=== PATIENT | female | born 1960 | race Caucasian/White ===

== ENCOUNTER 2025-01-08 18:41 | Inpatient (IN) ==
[2025-01-08 18:49] VITALS: BMI 46.5
[2025-01-08] MEDS: SODIUM CHLORIDE 1,000 ML IV ONE ×2 (18:57→21:24)
[2025-01-08] MEDS: PEPCID IVP ONE (18:58)
[2025-01-08] MEDS: REGLAN IVP STA (19:00)
[2025-01-08] MEDS: TORADOL IVP ONE (19:14)
[2025-01-08] MEDS: MAXIPIME 2 GM/50 ML D5W 2 GM/50 ML BAG IV ONE (19:14)
[2025-01-08] MEDS: TYLENOL PO STA (19:15)
[2025-01-08] MEDS: DUONEB NEB STA (19:16)
[2025-01-08 19:19] LABS: BASOPHILS % (AUTO) 0.2 % (0.0-3.0); HEMATOCRIT 36.2 % (37.0-47.0); IMMATURE GRANULOCYTE # (AUTO) 0.3 (0.0-1.0); IMMATURE GRANULOCYTE % (AUTO) 2.8 % (0.0-5.0); LYMPHOCYTES # (AUTO) 2.3 K/uL (0.60-3.4); LYMPHOCYTES % (AUTO) 18.3 (10.0-50.0); MEAN CORPUSCULAR HGB CONC 33.1 (31.8-35.4); MEAN CORPUSCULAR VOLUME 84.4 fl (81.0-99.0); MONOCYTES # (AUTO) 1.8 K/uL (0.4-2.0); MONOCYTES % (AUTO) 14.6 (0-10); NEUTROPHILS # (AUTO) 7.9 K/ul (2.0-6.9); NEUTROPHILS % (AUTO) 64.1 % (42.2-75.2); PLATELET COUNT 136 10^3/uL (140-440); RDW COEFFICIENT OF VARIATION 14.9 % (11.6-14.8); RED BLOOD COUNT 4.29 10^6/ul (4.20-5.40); WHITE BLOOD COUNT 12.34 K/ul (4.6-10.2)
[2025-01-08 19:27] LABS: ALANINE AMINOTRANSFERASE 27.7 U/L (0-35); ALBUMIN 3.84 g/dL (3.5-5.0); ALKALINE PHOSPHATASE 80.6 U/L (53-141); ASPARTATE AMINO TRANSFERASE 49.4 U/L (14-36); BILIRUBIN,TOTAL 1.42 mg/dL (0.2-1.3); CALCIUM 8.79 mg/dL (8.4-10.2); CARBON DIOXIDE 23.2 mmol/L (22-30.0); CHLORIDE 97.7 mmol/L (98-107); CREATININE 1.02 mg/dL (0.60-1.30); GLUCOSE 203.4 mg/dL (74-106); LIPASE 45.7 U/L (23-300); MAGNESIUM 1.56 mg/dL (1.6-2.3); POTASSIUM 3.28 mmol/L (3.5-5.1); SODIUM 135.6 mmol/L (134.5-145); TOTAL PROTEIN 8.2 g/dL (6.3-8.2)
[2025-01-08 19:38] LABS: TROPONIN I 0.024 ng/ml (0.0000-0.120)
[2025-01-08 19:40] LABS: MOLECULAR FLU A NEGATIVE BY NAAT (NEGATIVE); MOLECULAR FLU B NEGATIVE BY NAAT (NEGATIVE); SARS COV-2 RNA RAPID NAAT NEGATIVE (NEGATIVE)
--- NOTE | 2025-01-08 20:03 | DI ---
EXAM: CHEST RADIOGRAPH (1 VIEW) TECHNIQUE: Frontal Chest Radiograph. HISTORY: Chest pain, shortness of breath COMPARISON: None. FINDINGS: Lines, Tubes, Devices: None Lungs and Pleura: Small left pleural effusion with adjacent consolidation. Ground-glass densities in the left lung. Cardiac silhouette: Normal. Bones: No acute abnormality. IMPRESSION: Findings suggesting left lower lobe pneumonia. Clinical follow-up with follow up imaging to ensure resolution and exclude other etiologies.
--- NOTE | 2025-01-08 20:22 | ED.PDOC ---
General ED Provider: Dr. JUDY MCGUIRE DO Chief Complaint: Dizziness Stated Complaint: 64-year-old female presents to the ER for the second day in a row. She reports persistent nausea and vomiting. She reports chills. She denies any headache, cough, chest pain. Denies any localizing abdominal pain, diarrhea or constipation at this time. She was seen yesterday for refractory nausea vomiting but was eventually stabilized and she went home. Today she reports that she has had continued nausea vomiting and concerns for being able to tolerate anything p.o. She also has reported severe chills. No treatment prior to arrival. She arrives hypoxic and tachycardic, as well as febrile. She is not oxygen dependent Time Seen by Provider: 01/08/25 18:44 Mode of Arrival: Ambulance Information Source: Patient Primary Care Provider: PASCALE GIBSON Nursing and Triage Documentation Reviewed and Agree: Yes What is Opioid Naive?: *Opioid Naive implies the patient is not already taking opioids or not chronically receiving opioids on a daily basis. *PRN dosing is not "usually" associated with tolerance. *Patients are at higher risk of over-sedation and aspiration. What is Opioid Tolerant?: *Opioid Tolerance implies less than the expected response to an opioid. *Acquired tolerance is defined by the patient taking 60mg of oral morphine daily (or equianalgesic dose of another opioid) for 1 week or more. *Often associated with chronic pain. *May take more than usual dose to achieve desired pain control. Review of Systems Review Of Systems Constitutional: Reports No symptoms All Other Systems: Reviewed and Negative [facility] Medical History (Updated 01/09/25 @ 00:25 by CHELY VALVERDE) Iron deficiency anemia D50.9 - Iron deficiency anemia, unspecified (ICD-10) Migraine G43.909 - Migraine, unspecified, not intractable, without status migrainosus (ICD-10) Hypertension I10 - Essential (primary) hypertension (ICD-10) Sleep apnea G47.30 - Sleep apnea, unspecified (ICD-10) Diabetes type 2 E11.9 - Type 2 diabetes mellitus without complications (ICD-10) Family History (Updated 01/09/25 @ 00:25 by CHELY VALVERDE) SISTER Breast cancer PATERNAL GRANDMOTHER Breast cancer Heart disease FATHER Heart disease PATERNAL GRANDFATHER Colon cancer Social History (Updated 01/09/25 @ 00:26 by CHELY VALVERDE) Smoking and tobacco status: Never smoker Alcohol intake: never Substance use type: does not use Surgical History (Updated 01/09/25 @ 00:25 by CHELY VALVERDE) History of repair of rotator cuff Z98.890 - Other specified postprocedural states (ICD-10) History of hysterectomy Z90.710 - Acquired absence of both cervix and uterus (ICD-10) H/O bilateral oophorectomy Z90.722 - Acquired absence of ovaries, bilateral (ICD-10) History of appendectomy Z90.49 - Acquired absence of other specified parts of digestive tract (ICD- 10) Female Reproductive History Menstrual Hx Hysterectomy: Yes Hx Tubal Ligation: No Physical Exam Physical Exam Appearance: Reports Ill-appearing, No pain distress and Well-nourished Ill-appearing: Severe Eyes: Reports MAXIMO and EOMI ENT: Reports Nose normal and Oropharynx normal Neck: Supple Respiratory: Reports Airway patent, Breath sounds diminished, Respirations nonlabored and Rhonchi; Denies Crackles Cardiovascular: Reports Pulses normal and Tachycardia GI/: Reports Soft and Nontender Musculoskeletal: Reports Normal strength, ROM intact and No edema Skin: Reports Warm, Dry and Normal color Neurological: Reports Sensation intact, Motor intact, Alert and Oriented Psychiatric: Reports Affect appropriate and Mood appropriate Interpretation EKG Interpretation EKG Interpretation By: ED Physician Time of EKG #1: 18:58 Rate: Tachy (122) Rhythm: Sinus Ectopy: None [place]: Left ST Segment: Normal Interpretation: No acute ischemia Radiology Interpretation Radiology Interpretation By: Radiologist Radiology Results: Positive (Left lower lobe pneumonia) Exam Interpreted: CXR Re-Evaluation Re-Evaluation Additional Comments: 64-year-old female presents to the ER ill-appearing, febrile and tachycardic. Concern for sepsis. Sepsis protocol immediately initiated to include cultures lactic acid and fluid bolus as well as antibiotics. Will give 2 g of cefepime while awaiting more details to tailor towards specific source. Suspect pneumonia. Concern for aspiration given her nausea vomiting. Added Levaquin since I would normally utilize Zosyn for anaerobic coverage but had already given cefepime. Patient tolerated fluid bolus well and tachycardia did improve. Supplemental oxygen maintain oxygen saturations. Lactic acid negative. Potassium mildly decreased therefore will try to replete orally. Breathing treatments initiated in addition to her antibiotics and fluid bolus. Patient will require hospitalization given her oxygen requirement and overall sick appearance. 2053: Patient accepted for admission. Tissue perfusion reassessment completed. No adverse interval change. Vital signs stable with treatment, improving. Course Course 01/08/25 18:55 01/08/25 18:55 Orders, Labs, Meds: Lab Review 01/08/25 01/08/25 01/08/25 18:55 19:05 19:41 WBC 12.34 H RBC 4.29 Hgb 12.0 Hct 36.2 L MCV 84.4 MCH 28.0 MCHC 33.1 RDW Coeff of Phillip 14.9 H Plt Count 136 L Immature Gran % (Auto) 2.8 Neut % (Auto) 64.1 Lymph % (Auto) 18.3 [place] % (Auto) 14.6 H Eos % (Auto) 0.0 Baso % (Auto) 0.2 Neut # (Auto) 7.9 H Lymph # (Auto) 2.3 [place] # (Auto) 1.8 Eos # (Auto) 0.0 Baso # (Auto) 0.0 Immature Gran # (Auto) 0.3 Sodium 135.6 Potassium 3.28 L Chloride 97.7 L Carbon Dioxide 23.2 Anion Gap 17.98 BUN 16.0 Creatinine 1.02 Estimated GFR (MDRD) 54.00 BUN/Creatinine Ratio 15.68 Glucose 203.4 H Lactic Acid 1.24 Calcium 8.79 Magnesium 1.56 L Total Bilirubin 1.42 H AST 49.4 H ALT 27.7 Alkaline Phosphatase 80.6 Troponin I 0.024 NT-Pro-B Natriuret Pep Total Protein 8.20 Albumin 3.84 Globulin 4.36 Albumin/Globulin Ratio 0.88 Lipase 45.7 Procalcitonin 2.34 H Influ A Molecular Assay Negative by naat Influ B Molecular Assay Negative by naat SARS CoV-2 RNA Rapid AMADA Negative 01/08/25 19:43 WBC RBC Hgb Hct MCV MCH MCHC RDW Coeff of Phillip Plt Count Immature Gran % (Auto) Neut % (Auto) Lymph % (Auto) [place] % (Auto) Eos % (Auto) Baso % (Auto) Neut # (Auto) Lymph # (Auto) [place] # (Auto) Eos # (Auto) Baso # (Auto) Immature Gran # (Auto) Sodium Potassium Chloride Carbon Dioxide Anion Gap BUN Creatinine Estimated GFR (MDRD) BUN/Creatinine Ratio Glucose Lactic Acid Calcium Magnesium Total Bilirubin AST ALT Alkaline Phosphatase Troponin I NT-Pro-B Natriuret Pep 601 H Total Protein Albumin Globulin Albumin/Globulin Ratio Lipase Procalcitonin Influ A Molecular Assay Influ B Molecular Assay SARS CoV-2 RNA Rapid AMADA Orders Category Date Time Status ADMIT PATIENT INPATIENT .TO [facility] (MONITORED BED) ADMISSION 01/08/25 20:52 Active EKG-(ED ONLY) Stat CARDIO 01/08/25 18:46 Completed NEBULIZER TREATMENT Stat CARDIO 01/08/25 18:47 Completed TELEMETRY MONITORING TELE CARE 01/08/25 20:52 Active ED APPLY O2 .ONCE EMERGENCY 01/08/25 19:36 Active ED IV/MEDIPORT/POWERPORT .ONCE EMERGENCY 01/08/25 19:36 Active BLOOD CULTURE (ED ONLY) Stat LAB 01/08/25 19:04 Received CBC W/ AUTO DIFF Stat LAB 01/08/25 18:55 Completed CMP [COMPREHENSIVE METABOLIC PANEL] Stat LAB 01/08/25 18:55 Completed DRUG SCREEN (RAPID FOR ED) [DRUG SCREEN, URINE, RAPID] LAB 01/08/25 21:00 Completed Stat ED PROBNP [NT-PROBNP(ED)] Stat LAB 01/08/25 19:43 Completed FLU A/B MOLECULAR Stat LAB 01/08/25 19:05 Completed LACTIC ACID Stat LAB 01/08/25 18:55 Completed LIPASE Stat LAB 01/08/25 18:55 Completed MAGNESIUM Stat LAB 01/08/25 18:55 Completed PROCALCITONIN Stat LAB 01/08/25 19:41 Completed RESPIRATORY PANEL 2.1 (PCR) Stat LAB 01/08/25 21:11 Completed SARS COV-2 RNA RAPID AMADA Stat LAB 01/08/25 19:05 Completed TROPONIN I Stat LAB 01/08/25 18:55 Completed URINALYSIS C & S IF INDICATED Stat LAB 01/08/25 21:00 Completed 0.9 % Sodium Chloride [Saline Flush] Meds 01/08/25 19:36 Active 1 syr IVF PRN PRN Acetaminophen [Tylenol] Meds 01/08/25 18:57 Discontinued 500 mg PO ONCE STA Cefepime 2 gm/D5w [Maxipime 2 gm/50 ml D5w] Meds 01/08/25 18:57 Discontinued 2 gm in 50 ml IV ONCE Famotidine Inj [Pepcid] Meds 01/08/25 18:45 Discontinued 20 mg IVP ONCE ONE Ipratropium/Albuterol Neb [Duoneb] Meds 01/08/25 18:47 Discontinued 3 ml NEB ONCE STA Ketorolac Tromethamine [Toradol] Meds 01/08/25 18:57 Discontinued 30 mg IVP ONCE ONE Levofloxacin/D5w [Levaquin 500 mg/100 ml D5w] Meds 01/08/25 20:24 Discontinued 500 mg in 100 ml IV ONCE Metoclopramide HCl [Reglan] Meds 01/08/25 18:46 Discontinued 10 mg IVP ONCE STA Potassium Chloride [K-Dur] Meds 01/08/25 20:18 Discontinued 40 meq PO ONCE STA Sodium Chloride 0.9% [Sodium Chloride] 1,000 ml Meds 01/08/25 18:45 Discontinued IV BOLUS Sodium Chloride 0.9% [Sodium Chloride] 1,000 ml Meds 01/08/25 19:38 Discontinued IV BOLUS RESUSCITATION STATUS Routine OTHERS 01/08/25 20:19 Ordered CHEST, 1V AP ONLY Stat RADS 01/08/25 18:48 Completed Medications Generic Name Dose Route Start Last Admin Trade Name Freq PRN Reason Stop Dose Admin Acetaminophen 650 mg 01/08/25 21:25 01/09/25 02:09 Acetaminophen 325 Mg Tablet PO 650 mg Q4H PRN Administration Mild Pain Albuterol/Ipratropium 3 ml 01/09/25 00:00 01/09/25 01:28 Ipratropium/Albuterol Vial.Neb NEB 3 ml RTQ6H EITAN Administration Dextrose 50 ml 01/08/25 21:25 Dextrose 50 % In Water 50 Ml Disp.Syrin IVP ONCE PRN Unconscious Hypoglycemia Protocol Duloxetine HCl 60 mg 01/09/25 09:00 Duloxetine Hcl 30 Mg Capsule. PO DAILY EITAN Hydrochlorothiazide 25 mg 01/09/25 09:00 Hydrochlorothiazide 25 Mg Tablet PO DAILY EITAN Potassium Chloride/Dextrose/Sod Cl 1,000 mls @ 100 mls/hr 01/08/25 21:30 01/08/25 23:05 D5%-Ns-Kcl 20 Meq/L Iv Yari IV 100 mls/hr .Q10H EITAN Administration Piperacillin Sod/Tazobactam 100 mls @ 200 mls/hr 01/09/25 06:00 Sod 4.5 gm/ Sodium Chloride IV 01/12/25 05:59 Q6HR EITAN Metoclopramide HCl 5 mg 01/08/25 21:25 Metoclopramide Hcl 10 Mg/2 Ml IVP Q6H PRN Nausea / Vomiting Metoprolol Succinate 25 mg 01/09/25 09:00 Metoprolol Succinate 25 Mg Tab.Er.24h PO DAILY EITAN Ondansetron HCl 4 mg 01/08/25 21:25 Ondansetron Hcl/Pf 4 Mg/2 Ml Sdv IVP Q6H PRN Nausea / Vomiting Sodium Chloride 1 syr 01/08/25 19:36 0.9% Sodium Chloride 10 Ml Disp.Syrin IVF PRN PRN To flush IV Sulfasalazine 500 mg 01/09/25 09:00 Sulfasalazine 500 Mg Tablet PO 2XD EITAN Discontinued Medications Generic Name Dose Route Start Last Admin Trade Name Freq PRN Reason Stop Dose Admin Acetaminophen 500 mg 01/08/25 18:57 01/08/25 19:15 Acetaminophen 500 Mg Tablet PO 01/08/25 18:58 500 mg ONCE STA Administration Albuterol/Ipratropium 3 ml 01/08/25 18:47 01/08/25 19:16 Ipratropium/Albuterol Vial.Neb NEB 01/08/25 18:48 3 ml ONCE STA Administration Famotidine 20 mg 01/08/25 18:45 01/08/25 18:58 Famotidine Inj 20 Mg/2 Ml Vial IVP 01/08/25 18:46 20 mg ONCE ONE Administration Sodium Chloride 1,000 mls @ 1,000 mls/hr 01/08/25 18:45 01/08/25 20:22 Sodium Chloride IV 01/08/25 19:44 Infused BOLUS ONE Infusion CEFEPIME 2 GM/D5W 2 gm in 50 mls @ 100 mls/hr 01/08/25 18:57 01/08/25 19:14 Maxipime 2 Gm/50 Ml D5w IV 01/08/25 19:26 100 mls/hr ONCE ONE Administration Sodium Chloride 1,000 mls @ 1,000 mls/hr 01/08/25 19:38 01/08/25 20:24 Sodium Chloride IV 01/08/25 20:37 1,000 mls/hr BOLUS ONE Administration Levofloxacin/Dextrose 500 mg in 100 mls @ 100 mls/hr 01/08/25 20:24 01/08/25 20:29 Levaquin 500 Mg/100 Ml D5w IV 01/08/25 21:23 100 mls/hr ONCE ONE Administration Ketorolac Tromethamine 30 mg 01/08/25 18:57 01/08/25 19:14 Ketorolac Tromethamine 30 Mg/Ml Vial IVP 01/08/25 18:58 30 mg ONCE ONE Administration Metoclopramide HCl 10 mg 01/08/25 18:46 01/08/25 19:00 Metoclopramide Hcl 10 Mg/2 Ml IVP 01/08/25 18:47 10 mg ONCE STA Administration Potassium Chloride 40 meq 01/08/25 20:18 01/08/25 20:25 Potassium Chloride 20 Meq Tab PO 01/08/25 20:19 40 meq ONCE STA Administration Vital Signs: Temp Pulse Resp BP Pulse Ox 01/08/25 20:25 98.7 F 01/08/25 18:42 102.8 F H 127 H 32 H 166/80 H 84 L Discharge Plan Discharge Patient Disposition: ADMITTED INPATIENT Discharge Problem: Sepsis, Pneumonia Did you review [place] for ALL controlled substances?: Not Applicable ED Provider: JUDY MCGUIRE Condition: Stable Physician Progress Note: All EKGs and plain film imaging independently reviewed and interpreted by me unless stated otherwise. CTs interpreted by radiology unless otherwise stated. All pediatric patients are accompanied by parent or legal guardian as primary historian and/or validate patient report unless otherwise stated.
[2025-01-08] MEDS: K-DUR PO STA (20:25)
[2025-01-08] MEDS: LEVAQUIN 500 MG/100 ML D5W 500 MG/100 ML BAG IV ONE (20:29)
[2025-01-08 21:18] LABS: BORDETELLA PARAPERTUSSIS (PCR) NOT DETECTED (NOT DETECT); BORDETELLA PERTUSSIS (PCR) NOT DETECTED (NOT DETECT); CHLAMYDIA PNEUMONIAE (PCR) NOT DETECTED (NOT DETECT); CORONAVIRUS 229E (PCR) NOT DETECTED (NOT DETECT); CORONAVIRUS HKU1 (PCR) NOT DETECTED (NOT DETECT); CORONAVIRUS NL63 (PCR) NOT DETECTED (NOT DETECT); CORONAVIRUS OC43 (PCR) NOT DETECTED (NOT DETECT); HUMAN METAPNEUMOVIRUS (PCR) NOT DETECTED (NOT DETECT); HUMAN RHINOVIRUS/ENTEROV (PCR) NOT DETECTED (NOT DETECT); INFLUENZA A H1 (PCR) NOT DETECTED (NOT DETECT); INFLUENZA A H1-2009 (PCR) NOT DETECTED (NOT DETECT); INFLUENZA A H3 (PCR) NOT DETECTED (NOT DETECT); INFLUENZA B (PCR) NOT DETECTED (NOT DETECT); MYCOPLASMA PNEUMONIAE (PCR) NOT DETECTED (NOT DETECT); PARAINFLUENZA VIRUS 1 (PCR) NOT DETECTED (NOT DETECT); PARAINFLUENZA VIRUS 2 (PCR) NOT DETECTED (NOT DETECT); PARAINFLUENZA VIRUS 3 (PCR) NOT DETECTED (NOT DETECT); PARAINFLUENZA VIRUS 4 (PCR) NOT DETECTED (NOT DETECT); RESPIRATORY SYNCYTIAL V (PCR) NOT DETECTED (NOT DETECT); SARS_COV_2 (PCR) NOT DETECTED (NOT DETECT)
[2025-01-08 21:22] LABS: BILIRUBIN,URINE 1+ (NEGATIVE); CLARITY,URINE Clear (CLEAR); COLOR,URINE Yellow (YELLOW); GLUCOSE, URINE (UA) Negative (NEGATIVE); KETONES,URINE 3+ (NEGATIVE); LEUKOCYTE ESTERASE ,URINE Negative (NEGATIVE); NITRITE,URINE Negative (NEGATIVE); PH,URINE 5.5 (5-9); PROTEIN,URINE 3+ (NEGATIVE); URINE, BLOOD 1+ (NEGATIVE)
[2025-01-08] MEDS ORDERED: DEXTROSE 50%-WATER ABBOJECT IVP PRN (21:25)
[2025-01-08 21:52] LABS: AMPHETAMINE SCREEN,URINE NEGATIVE (NEGATIVE); BACTERIA,URINE TRACE (NOT PRESENT); BARBITURATE SCREEN,URINE NEGATIVE (NEGATIVE); BENZODIAZEPINES SCREEN,URINE NEGATIVE (NEGATIVE); CANNABINOID SCREEN,URINE NEGATIVE (NEGATIVE); COCAIN SCREEN,URINE NEGATIVE (NEGATIVE); FINE GRANULAR CASTS,URINE 0-2 (NOT PRESENT); METHADONE URINE SCREEN NEGATIVE (NEGATIVE); METHAMPHETAMINES SCREEN,URINE NEGATIVE (NEGATIVE); OPIATE SCREEN,URINE NEGATIVE (NEGATIVE); OXYCODONE URINE SCREEN NEGATIVE (NEGATIVE); PHENCYCLIDINE SCREEN,URINE NEGATIVE (NEGATIVE); TRICYCLIC ANTIDEPRESSANTS URIN NEGATIVE (NEGATIVE); URINE WBC, MICROSCOPIC 0-2 (0-2)
[2025-01-08 21:53] LABS: AMORPHOUS SEDIMENT,UR 1+ (NOT PRESENT); MUCUS,URINE 1+ (NOT PRESENT)
[2025-01-08 22:34] LABS: ADENOVIRUS (PCR) NOT DETECTED (NOT DETECT)
[2025-01-08] MEDS: D5%-NS-KCL 20 MEQ/L IV SOL 1,000 ML IV SCH (23:05)
[2025-01-09] MEDS: DUONEB NEB SCH (01:28)
[2025-01-09] MEDS: TYLENOL PO PRN (02:09)
[2025-01-09] MEDS: ZOFRAN SDV IVP PRN (04:52)
[2025-01-09] MEDS: ZOSYN 4.5 GM 4.5 GM in SODIUM CHLORIDE 100ML 100 ML IV SCH (05:00)
[2025-01-09 05:50] LABS: BASOPHILS % (AUTO) 0.1 % (0.0-3.0); HEMATOCRIT 32.6 % (37.0-47.0); HEMOGLOBIN 10.5 g/dl (12.0-16.0); IMMATURE GRANULOCYTE # (AUTO) 0.3 (0.0-1.0); IMMATURE GRANULOCYTE % (AUTO) 3.1 % (0.0-5.0); LYMPHOCYTES # (AUTO) 2.9 K/uL (0.60-3.4); LYMPHOCYTES % (AUTO) 28.9 (10.0-50.0); MEAN CORPUSCULAR HEMOGLOBIN 27.3 pg (27.0-31.0); MEAN CORPUSCULAR HGB CONC 32.2 (31.8-35.4); MEAN CORPUSCULAR VOLUME 84.7 fl (81.0-99.0); MONOCYTES # (AUTO) 1.5 K/uL (0.4-2.0); MONOCYTES % (AUTO) 15.3 (0-10); NEUTROPHILS # (AUTO) 5.2 K/ul (2.0-6.9); NEUTROPHILS % (AUTO) 52.6 % (42.2-75.2); PLATELET COUNT 122 10^3/uL (140-440); RED BLOOD COUNT 3.85 10^6/ul (4.20-5.40); WHITE BLOOD COUNT 9.86 K/ul (4.6-10.2)
[2025-01-09 05:57] LABS: ALANINE AMINOTRANSFERASE 23.6 U/L (0-35); ALBUMIN 3.25 g/dL (3.5-5.0); ASPARTATE AMINO TRANSFERASE 36.5 U/L (14-36); BILIRUBIN,TOTAL 0.89 mg/dL (0.2-1.3); BLOOD UREA NITROGEN 18.2 mg/dL (7-17); CALCIUM 8.08 mg/dL (8.4-10.2); CARBON DIOXIDE 21.5 mmol/L (22-30.0); CHLORIDE 103.2 mmol/L (98-107); CREATININE 0.89 mg/dL (0.60-1.30); GLUCOSE 127.9 mg/dL (74-106); POTASSIUM 3.35 mmol/L (3.5-5.1); SODIUM 138.7 mmol/L (134.5-145); TOTAL PROTEIN 6.95 g/dL (6.3-8.2)
[2025-01-09] MEDS: REGLAN IVP PRN (08:01)
[2025-01-09] MEDS: HYDROCHLOROTHIAZIDE PO SCH (08:46)
[2025-01-09] MEDS: TOPROL XL PO SCH (08:47)
[2025-01-09] MEDS: CYMBALTA PO SCH (08:47)
[2025-01-09] MEDS: AZULFIDINE PO SCH (08:47)
[2025-01-09] MEDS: K-DUR PO ONE (08:47)
[2025-01-09] MEDS: PROTONIX IVP SCH (11:42)
[2025-01-09] MEDS: PEPCID IVP SCH (11:42)
--- NOTE | 2025-01-09 15:33 | PCM ---
Date of Service Date Seen by Provider: 01/09/25 Time Seen by Provider: 09:30 Admit Day/Time Admission Date: 01/09/25 Admission Time: 02:00 Reason for Admission Chief Complaint: dizziness and N/V Hospital Provider Hospital Provider: LIANET BLISS, [facility] [place] Primary Care Physician Primary Care Physician: PASCALE GIBSON History of Present Illness History of Present Illness: 64-year-old female with past medical history of hypertension sleep apnea type 2 diabetes and iron deficiency anemia presented to the ER with a 12-day history of nausea and vomiting. Patient was seen in the ER on 01/07 and sent home with antiemetics. Patient states over the last 2 days she has felt as if she had a fever but was unable to check to see what her temp was due to broken thermometers. Has had chills, sweats, and continued to have vomiting. Upon arrival to the ER patient's temp was found to be 102.8, heart rate in the 120s, and tachypneic with respirations in the 20s. Patient was also found to be hyp oxic with O2 sat in the 80s. Hypoxia continued despite placement of 2 L/min nasal cannula. Patient required up to [address] scan completed on 01/07 was negative for acute findings. Chest x-ray completed this visit showed left lower lobe pneumonia. She was given Levaquin and cefepime in the ER. At this time patient states that vomiting has resolved but nausea is still somewhat present. Denies any shortness of breath. Does report productive cough with yellow sputum. At this time she is requiring 2 L of oxygen via nasal cannula. Admitted to [facility] inpatient Case Discussed With Case Discussed With: Patient's case was discussed with the ER Physicians, Dr. Boone [facility] Medical History Iron deficiency anemia D50.9 - Iron deficiency anemia, unspecified (ICD-10) Migraine G43.909 - Migraine, unspecified, not intractable, without status migrainosus (ICD-10) Hypertension I10 - Essential (primary) hypertension (ICD-10) Sleep apnea G47.30 - Sleep apnea, unspecified (ICD-10) Diabetes type 2 E11.9 - Type 2 diabetes mellitus without complications (ICD-10) Surgical History History of repair of rotator cuff Z98.890 - Other specified postprocedural states (ICD-10) History of hysterectomy Z90.710 - Acquired absence of both cervix and uterus (ICD-10) H/O bilateral oophorectomy Z90.722 - Acquired absence of ovaries, bilateral (ICD-10) History of appendectomy Z90.49 - Acquired absence of other specified parts of digestive tract (ICD- 10) Family History SISTER Breast cancer PATERNAL GRANDMOTHER Breast cancer Heart disease FATHER Heart disease PATERNAL GRANDFATHER Colon cancer Social History Smoking and tobacco status: Never smoker Alcohol intake: never Substance use type: does not use Allergies Allergies Allergy/AdvReac Type Severity Reaction Status Date / Time morphine Allergy Anaphylaxis Verified 01/08/25 18:49 papaya AdvReac Verified 01/08/25 18:49 rosuvastatin (From Crestor) AdvReac Nausea Verified 01/08/25 18:49 sumatriptan (From Imitrex) AdvReac Verified 01/08/25 18:49 Current Medications Home Medications Acetaminophen (Acetaminophen 325 Mg Tablet) 650 mg PO Q4H PRN PRN Reason: Mild Pain Last Admin: 01/09/25 02:09 Dose: 650 mg Albuterol/Ipratropium (Ipratropium/Albuterol Vial.Neb) 3 ml NEB RTQ6H [facility] Last Admin: 01/09/25 11:57 Dose: 3 ml Dextrose (Dextrose 50 % In Water 50 Ml Disp.Syrin) 50 ml IVP ONCE PRN; Protocol PRN Reason: Unconscious Hypoglycemia Duloxetine HCl (Duloxetine Hcl 30 Mg Capsule.Dr) 60 mg PO DAILY [facility] Last Admin: 01/09/25 08:47 Dose: 60 mg Famotidine (Famotidine Inj 20 Mg/2 Ml Vial) 20 mg IVP Q12HR [facility] Last Admin: 01/09/25 11:42 Dose: 20 mg Hydrochlorothiazide (Hydrochlorothiazide 25 Mg Tablet) 25 mg PO DAILY [facility] Last Admin: 01/09/25 08:46 Dose: 25 mg Piperacillin Sod/Tazobactam (Sod 4.5 gm/ Sodium Chloride) 100 mls @ 200 mls/hr IV Q6HR [facility] Stop: 01/12/25 05:59 Last Admin: 01/09/25 12:38 Dose: 200 mls/hr Metoclopramide HCl (Metoclopramide Hcl 10 Mg/2 Ml) 5 mg IVP Q6H PRN PRN Reason: Nausea / Vomiting Last Admin: 01/09/25 08:01 Dose: 5 mg Metoprolol Succinate (Metoprolol Succinate 25 Mg Tab.Er.24h) 25 mg PO DAILY [facility] Last Admin: 01/09/25 08:47 Dose: 25 mg Ondansetron HCl (Ondansetron Hcl/Pf 4 Mg/2 Ml Sdv) 4 mg IVP Q6H PRN PRN Reason: Nausea / Vomiting Last Admin: 01/09/25 04:52 Dose: 4 mg Pantoprazole Sodium (Pantoprazole Sodium 40 Mg Vial) 40 mg IVP DAILY [facility] Last Admin: 01/09/25 11:42 Dose: 40 mg Sodium Chloride (0.9% Sodium Chloride 10 Ml Disp.Syrin) 1 syr IVF PRN PRN PRN Reason: To flush IV Sulfasalazine (Sulfasalazine 500 Mg Tablet) 500 mg PO 2XD [facility] Last Admin: 01/09/25 08:47 Dose: 500 mg adalimumab 40 mg/0.4 mL subcutaneous pen kit (Humira(CF) Pen) 40 mg subcut WEEKLY 01/07/25 [History Confirmed 01/08/25] duloxetine 60 mg capsule,delayed release 60 mg PO DAILY 01/07/25 [History Confirmed 01/08/25] hydrochlorothiazide 25 mg tablet 25 mg PO DAILY 01/07/25 [History Confirmed 01/08/25] metformin 500 mg tablet,extended release 24 hr 500 mg PO DAILY 01/07/25 [History Confirmed 01/08/25] metoclopramide HCl 10 mg tablet (Reglan) 10 mg PO Q6H PRN nausea and vomiting #10 tabs 01/07/25 [Rx Confirmed 01/08/25] metoprolol succinate 25 mg tablet,extended release 24 hr 25 mg PO DAILY 01/07/25 [History Confirmed 01/08/25] sulfasalazine 500 mg tablet 500 mg PO 2XD 01/07/25 [History Confirmed 01/08/25] Opioid Naive vs. Tolerant Does Patient Take Opioids?: No Is Patient Opioid Naive?: Yes What is Opioid Naive?: *Opioid Naive implies the patient is not already taking opioids or not chronically receiving opioids on a daily basis. *PRN dosing is not "usually" associated with tolerance. *Patients are at higher risk of over-sedation and aspiration. Is Patient Opioid Tolerant?: No What is Opioid Tolerant?: *Opioid Tolerance implies less than the expected response to an opioid. *Acquired tolerance is defined by the patient taking 60mg of oral morphine daily (or equianalgesic dose of another opioid) for 1 week or more. *Often associated with chronic pain. *May take more than usual dose to achieve desired pain control. Review of Systems Constitutional: Reports Fever, Chills, Weakness and Sweats Head: Reports Normocephalic Eyes: Reports No symptoms Ears: Reports No symptoms Nose: Reports No symptoms Mouth: Reports No symptoms Throat: Reports No symptoms Cardiovascular: Reports No symptoms Respiratory: Reports No symptoms Gastrointestinal: Reports Nausea and Vomiting Genitourinary: Reports No Symptoms Musculoskeletal: Reports No symptoms Endocrine: Reports No symptoms Hematology: Reports No symptoms Immunology: Reports No symptoms Neurological: Reports No symptoms Psychiatric: Reports No symptoms Physical examination Most Recent Vital Signs: Most Recent Vital Signs Temperature 100.5 F H 01/09/25 14:00 Temperature Source Temporal Artery Scan 01/09/25 14:00 Temperature Source Oral 01/08/25 20:25 Pulse Rate 108 H 01/09/25 14:00 Respiratory Rate 20 01/09/25 14:00 Blood Pressure 168/82 H 01/09/25 14:00 Blood Pressure Mean 110 01/09/25 14:00 Blood Pressure Left Arm 105/70 01/08/25 23:23 Blood Pressure Location Right Arm 01/09/25 14:00 Blood Pressure Position Supine 01/09/25 14:00 O2 Sat by Pulse Oximetry 92 L 01/09/25 14:00 Oxygen Delivery Method Nasal Cannula 01/09/25 14:00 Oxygen Flow Rate 2 01/09/25 14:00 Height 5 ft 5 in 01/08/25 23:23 Weight 126.9 kg 01/08/25 23:23 Telemetry Type Remote Telemetry 01/09/25 07:00 Telemetry Monitoring Continues 01/09/25 07:00 Irregular Telemetry Rate (Approximate) 90-100 BPM 01/09/25 07:00 Telemetry Heart Rate 90 01/09/25 07:00 Telemetry SPO2 98 01/09/25 01:00 EKG HI Interval 0.18 01/09/25 07:00 EKG QRS Interval 0.12 H 01/09/25 07:00 Telemetry Strip Reading SR w BBB 01/09/25 07:00 Appearance: Positive No Apparent Distress, Alert and Oriented x3, Ill-Appearing and Obese Skin: Positive Warm and Good Turgor HEENT: Positive Normocephalic and PERRLA Neck: Positive Supple and Midline Trachea Chest/Lungs: Positive Symmetrical With Equal Breath Sounds, Rhonci (LL lobe) and Good Air Movement all 4 Lung ; Negative Rales or Wheezes Heart: Positive RRR and Pulses Normal GI/: Positive Soft, Nontender, Bowel Sounds Normal, No Distention and No Organomegaly Musculoskeletal: Positive Not Examined Extremities: Positive Intact Peripheral Pulses, Stable Joints Without Laxity and Good ROM in All Joints; Negative Edema Neurological: Positive Sensation Intact, Motor intact, Reflexes Intact, Alert, Oriented and Other (generalized weakness) Labs This Visit Labs This Visit: Labs This Visit 01/08/25 01/08/25 01/08/25 18:55 19:05 19:41 WBC 12.34 H RBC 4.29 Hgb 12.0 Hct 36.2 L MCV 84.4 MCH 28.0 MCHC 33.1 RDW Coeff of Phillip 14.9 H Plt Count 136 L Immature Gran % (Auto) 2.8 Neut % (Auto) 64.1 Lymph % (Auto) 18.3 Harper % (Auto) 14.6 H Eos % (Auto) 0.0 Baso % (Auto) 0.2 Neut # (Auto) 7.9 H Lymph # (Auto) 2.3 Harper # (Auto) 1.8 Eos # (Auto) 0.0 Baso # (Auto) 0.0 Immature Gran # (Auto) 0.3 Sodium 135.6 Potassium 3.28 L Chloride 97.7 L Carbon Dioxide 23.2 Anion Gap 17.98 BUN 16.0 Creatinine 1.02 Estimated GFR (MDRD) 54.00 BUN/Creatinine Ratio 15.68 Glucose 203.4 H Lactic Acid 1.24 Calcium 8.79 Magnesium 1.56 L Total Bilirubin 1.42 H AST 49.4 H ALT 27.7 Alkaline Phosphatase 80.6 Troponin I 0.024 NT-Pro-B Natriuret Pep Total Protein 8.20 Albumin 3.84 Globulin 4.36 Albumin/Globulin Ratio 0.88 Lipase 45.7 Procalcitonin 2.34 H Urine Color Urine Clarity Urine pH Ur Specific Crescent Urine Protein Urine Glucose (UA) Urine Ketones Urine Blood Urine Nitrite Urine Bilirubin Urine Urobilinogen Ur Leukocyte Esterase Urine Microscopic RBC Urine Microscopic WBC Ur Squamous Epith Cells Amorphous Sediment Urine Bacteria Fine Granular Casts Urine Mucus Urine Opiates Screen Ur Oxycodone Screen Urine Methadone Screen Ur Barbiturates Screen U Tricyclic Antidepress Ur Phencyclidine Scrn Ur Amphetamine Screen U Methamphetamines Scrn U Benzodiazepines Scrn Urine Cocaine Screen U Cannabinoids Screen Adenovirus (PCR) B. pertussis DNA (PCR) B.parapertussis DNA PCR C. pneumoniae DNA (PCR) Coronavirus OC43 (PCR) Coronavirus HKU1 (PCR) Coronavirus 229E (PCR) Coronavirus NL63 (PCR) Human Metapneumovir PCR Influenza A (H1) PCR Influ A (H1N1/09) PCR Influenza A (H3) PCR Influenza Type A (PCR) Influ A Molecular Assay Negative by naat Influenza B (RT-PCR) Influ B Molecular Assay Negative by naat M. pneumoniae (PCR) Parainfluenza 1 (PCR) Parainfluenza 2 (PCR) Parainfluenza 3 (PCR) Parainfluenza 4 (PCR) RSV (PCR) Entero/Rhino (PCR) SARS-CoV-2 (PCR) SARS CoV-2 RNA Rapid [facility]ADA Negative 01/08/25 01/08/25 01/08/25 19:43 21:00 21:11 WBC RBC Hgb Hct MCV MCH MCHC RDW Coeff of Phillip Plt Count Immature Gran % (Auto) Neut % (Auto) Lymph % (Auto) Harper % (Auto) Eos % (Auto) Baso % (Auto) Neut # (Auto) Lymph # (Auto) Harper # (Auto) Eos # (Auto) Baso # (Auto) Immature Gran # (Auto) Sodium Potassium Chloride Carbon Dioxide Anion Gap BUN Creatinine Estimated GFR (MDRD) BUN/Creatinine Ratio Glucose Lactic Acid Calcium Magnesium Total Bilirubin AST ALT Alkaline Phosphatase Troponin I NT-Pro-B Natriuret Pep 601 H Total Protein Albumin Globulin Albumin/Globulin Ratio Lipase Procalcitonin Urine Color Yellow Urine Clarity Clear Urine pH 5.5 Ur Specific Crescent 1.025 Urine Protein 3+ H Urine Glucose (UA) Negative Urine Ketones 3+ H Urine Blood 1+ H Urine Nitrite Negative Urine Bilirubin 1+ H Urine Urobilinogen 1.0 H Ur Leukocyte Esterase Negative Urine Microscopic RBC 2-5 Urine Microscopic WBC 0-2 Ur Squamous Epith Cells 10-20 Amorphous Sediment 1+ Urine Bacteria Trace Fine Granular Casts 0-2 Urine Mucus 1+ Urine Opiates Screen Negative Ur Oxycodone Screen Negative Urine Methadone Screen Negative Ur Barbiturates Screen Negative U Tricyclic Antidepress Negative Ur Phencyclidine Scrn Negative Ur Amphetamine Screen Negative U Methamphetamines Scrn Negative U Benzodiazepines Scrn Negative Urine Cocaine Screen Negative U Cannabinoids Screen Negative Adenovirus (PCR) Not detected B. pertussis DNA (PCR) Not detected B.parapertussis DNA PCR Not detected C. pneumoniae DNA (PCR) Not detected Coronavirus OC43 (PCR) Not detected Coronavirus HKU1 (PCR) Not detected Coronavirus 229E (PCR) Not detected Coronavirus NL63 (PCR) Not detected Human Metapneumovir PCR Not detected Influenza A (H1) PCR Not detected Influ A (H1N1/09) PCR Not detected Influenza A (H3) PCR Not detected Influenza Type A (PCR) Not detected Influ A Molecular Assay Influenza B (RT-PCR) Not detected Influ B Molecular Assay M. pneumoniae (PCR) Not detected Parainfluenza 1 (PCR) Not detected Parainfluenza 2 (PCR) Not detected Parainfluenza 3 (PCR) Not detected Parainfluenza 4 (PCR) Not detected RSV (PCR) Not detected Entero/Rhino (PCR) Not detected SARS-CoV-2 (PCR) Not detected SARS CoV-2 RNA Rapid [facility]ADA 01/09/25 05:25 WBC 9.86 RBC 3.85 L Hgb 10.5 L Hct 32.6 L MCV 84.7 MCH 27.3 MCHC 32.2 RDW Coeff of Phillip 15.0 H Plt Count 122 L Immature Gran % (Auto) 3.1 Neut % (Auto) 52.6 Lymph % (Auto) 28.9 Harper % (Auto) 15.3 H Eos % (Auto) 0.0 Baso % (Auto) 0.1 Neut # (Auto) 5.2 Lymph # (Auto) 2.9 Harper # (Auto) 1.5 Eos # (Auto) 0.0 Baso # (Auto) 0.0 Immature Gran # (Auto) 0.3 Sodium 138.7 Potassium 3.35 L Chloride 103.2 Carbon Dioxide 21.5 L Anion Gap 17.35 BUN 18.2 H Creatinine 0.89 Estimated GFR (MDRD) 63.00 BUN/Creatinine Ratio 20.44 Glucose 127.9 H D Lactic Acid Calcium 8.08 L Magnesium Total Bilirubin 0.89 AST 36.5 H ALT 23.6 Alkaline Phosphatase 57.0 Troponin I NT-Pro-B Natriuret Pep Total Protein 6.95 Albumin 3.25 L Globulin 3.70 Albumin/Globulin Ratio 0.87 Lipase Procalcitonin 3.46 H Urine Color Urine Clarity Urine pH Ur Specific Crescent Urine Protein Urine Glucose (UA) Urine Ketones Urine Blood Urine Nitrite Urine Bilirubin Urine Urobilinogen Ur Leukocyte Esterase Urine Microscopic RBC Urine Microscopic WBC Ur Squamous Epith Cells Amorphous Sediment Urine Bacteria Fine Granular Casts Urine Mucus Urine Opiates Screen Ur Oxycodone Screen Urine Methadone Screen Ur Barbiturates Screen U Tricyclic Antidepress Ur Phencyclidine Scrn Ur Amphetamine Screen U Methamphetamines Scrn U Benzodiazepines Scrn Urine Cocaine Screen U Cannabinoids Screen Adenovirus (PCR) B. pertussis DNA (PCR) B.parapertussis DNA PCR C. pneumoniae DNA (PCR) Coronavirus OC43 (PCR) Coronavirus HKU1 (PCR) Coronavirus 229E (PCR) Coronavirus NL63 (PCR) Human Metapneumovir PCR Influenza A (H1) PCR Influ A (H1N1/09) PCR Influenza A (H3) PCR Influenza Type A (PCR) Influ A Molecular Assay Influenza B (RT-PCR) Influ B Molecular Assay M. pneumoniae (PCR) Parainfluenza 1 (PCR) Parainfluenza 2 (PCR) Parainfluenza 3 (PCR) Parainfluenza 4 (PCR) RSV (PCR) Entero/Rhino (PCR) SARS-CoV-2 (PCR) SARS CoV-2 RNA Rapid [facility] Imaging Imaging: EXAM: CT ABDOMEN AND PELVIS WITH CONTRAST FINDINGS: Lower Thorax: Calcified granuloma lower lung on the right with mild dependent atelectatic type changes at the lung bases. Calcified granuloma on the left. The heart is upper limits of normal without pericardial fluid. Mild coronary artery calcifications. Pulmonary arteries are normal. There are nonenlarged lymph nodes in the mediastinal and hilar regions, as seen with calcified right hilar lymph nodes. The visualized esophagus is contracted without definite abnormal finding. Liver: No focal hepatic abnormality. Biliary: The gallbladder and bile ducts are normal. Pancreas: No mass or evidence of pancreatitis. No duct dilation. Spleen: Splenic granuloma. Spleen demonstrates no abnormal finding otherwise. Adrenals: Diffuse prominence to the adrenal glands may be due to hyperplasia though this may be somewhat nodular on name left 2.1 x 1.6 cm. This is not consistent with an adenoma at this time. Where would recommend adrenal protocol CT or MRI to further evaluate. No other adrenal abnormality. Kidneys/Ureters: Kidney on the left demonstrates no mass or dominant cyst or intrarenal calculus or significant hydronephrosis. The ureter is within normal limits bilaterally. There is no right renal mass or dominant cyst or hydronephrosis or intra or renal calculus. GI Tract: The stomach is contracted without abnormal finding. Duodenum is normal. Small bowel is overall within normal limits. Terminal ileum is normal. Appendix May be small areas surgical absent. No secondary CT signs for appendicitis. Contracted colon without definite wall thickening or mass. Diverticulosis without diverticulitis. Peritoneal Cavity: No ascites. No free air. Retroperitoneum: No fluid collection. Lymph Nodes: No lymphadenopathy. Vasculature: Diffuse mild aortic atherosclerotic calcifications. No aortic or iliac aneurysm. Celiac, superior mesenteric, and inferior mesenteric arteries are grossly patent. Limited assessment of the portal and hepatic veins and IVC is unremarkable within limitations of the phase of IV contrast. Pelvis: Prostate is within normal limits. Similar vesicles are normal. Bladder is normal. Bones/Soft Tissues: Degenerative changes throughout the spine with endplate and facet joint and degenerative disc change. No fracture or dislocation. Mild degenerative change of the hips and SI joints. Prominent disc space narrowing L5-S1. IMPRESSION: 1. Dependent atelectatic change within the lung bases without significant acute process in the chest. Heart is borderline prominent. 2. Upper abdominal organs predominantly appear to be within normal limits though there is nodular appearance to the adrenal gland on the left 2.1 x 1.6 cm not confirmed to be an adenoma by this exam. We would recommend further nonemergent evaluation with CT or MRI adrenal protocol to further evaluate. No other adrenal abnormality. 3. Colon is contracted throughout. Definite wall thickening or fat stranding is not seen. There is diverticulosis without diverticulitis. Appendix is either sma ll or surgically absent without secondary CT signs for appendicitis. The remainder of the bowel appears within normal limits. 4. No significant fat stranding or free fluid or free air. No adenopathy or mass or other acute finding. 5. Granulomatous changes, as above. 6. Bony degenerative change without acute bony or soft tissue finding. EXAM: CHEST RADIOGRAPH (1 VIEW) FINDINGS: Lines, Tubes, Devices: None Lungs and Pleura: Small left pleural effusion with adjacent consolidation. Ground-glass densities in the left lung. Cardiac silhouette: Normal. Bones: No acute abnormality. IMPRESSION: Findings suggesting left lower lobe pneumonia. Clinical follow-up with follow up imaging to ensure resolution and exclude other etiologies. Review Statement Review Statement: I have independently reviewed and interpreted the labs/EKGs/imaging that were ordered by the ER provider. I have reviewed all outside records that are available currently in our EMR including imaging/notes/labs from previous visits. Plan Plan: 1. Acute Hypoxic Respiratory Failure in the setting of Aspiration Pneumonia - wean oxygen as tolerated, nebs 2. Aspiration Pneumonia - covering with zosyn, checking strep pneumo, legionella, and sputum culture, nebs 3. Sepsis - met due to white count, tachycardia, and fever, blood cultures pending, procal 3.4 today, trend 4. Vomiting - no episodes since being at hospital, started protonix and pepcid, zofran and reglan ordered prn, advance diet as tolerated, npo initially and on clear liquids at this time 5. DM2 - accuchecks Q4H until intake is more than liquids, hold oral agents 6. HTN - chronic, continue home medications DVT Prophylaxis: Ambulation Time Spent: Greater than 80 minutes spent with patient, 50% of the time spent with this patient was devoted to counseling and coordination of care. [facility] minutes spent discussing advance care planning. Disposition: Admit to: Med/Surg Inpatient Full Code Discussed Plan of Care with Dr. Manuel Ford. Medications Medication Orders: Medications Ordered Category Date Time Status 0.9 % Sodium Chloride [Saline Flush] Meds 01/08/25 19:36 Active 1 syr IVF PRN PRN Acetaminophen [Tylenol] Meds 01/08/25 21:25 Active 650 mg PO Q4H PRN Dextrose 50 % in Water [Dextrose 50%-Water Abboject] Meds 01/08/25 21:25 Active 50 ml IVP ONCE PRN Duloxetine HCl [Cymbalta] Meds 01/09/25 09:00 Active 60 mg PO DAILY Famotidine Inj [Pepcid] Meds 01/09/25 11:00 Active 20 mg IVP Q12HR Hydrochlorothiazide Meds 01/09/25 09:00 Active 25 mg PO DAILY Ipratropium/Albuterol Neb [Duoneb] Meds 01/09/25 00:00 Active 3 ml NEB RTQ6H Metoclopramide HCl [Reglan] Meds 01/08/25 21:25 Active 5 mg IVP Q6H PRN Metoprolol Succinate [Toprol Xl] Meds 01/09/25 09:00 Active 25 mg PO DAILY Ondansetron HCl/Pf [Zofran Sdv] Meds 01/08/25 21:25 Active 4 mg IVP Q6H PRN Pantoprazole Sodium [Protonix] Meds 01/09/25 10:30 Active 40 mg IVP DAILY Piperacillin Sodium/Tazobactam [Zosyn 4.5 gm] 4.5 gm Meds 01/09/25 06:00 Active 0.9 % Sodium Chloride [Sodium Chloride 100Ml] 100 ml IV Q6HR Sulfasalazine [Azulfidine] Meds 01/09/25 09:00 Active 500 mg PO 2XD
[2025-01-10 05:57] LABS: BASOPHILS % (AUTO) 0.2 % (0.0-3.0); EOSINOPHILS % (AUTO) 0.1 % (0.0-7.0); HEMATOCRIT 30.4 % (37.0-47.0); HEMOGLOBIN 9.9 g/dl (12.0-16.0); IMMATURE GRANULOCYTE # (AUTO) 0.2 (0.0-1.0); IMMATURE GRANULOCYTE % (AUTO) 2.4 % (0.0-5.0); LYMPHOCYTES # (AUTO) 3.3 K/uL (0.60-3.4); MEAN CORPUSCULAR HEMOGLOBIN 27.2 pg (27.0-31.0); MEAN CORPUSCULAR HGB CONC 32.6 (31.8-35.4); MEAN CORPUSCULAR VOLUME 83.5 fl (81.0-99.0); MONOCYTES # (AUTO) 1.2 K/uL (0.4-2.0); MONOCYTES % (AUTO) 13.9 (0-10); NEUTROPHILS # (AUTO) 4.1 K/ul (2.0-6.9); NEUTROPHILS % (AUTO) 46.4 % (42.2-75.2); PLATELET COUNT 104 10^3/uL (140-440); RDW COEFFICIENT OF VARIATION 15.2 % (11.6-14.8); RED BLOOD COUNT 3.64 10^6/ul (4.20-5.40); WHITE BLOOD COUNT 8.83 K/ul (4.6-10.2)
[2025-01-10 06:11] LABS: ALANINE AMINOTRANSFERASE 22.8 U/L (0-35); ALBUMIN 3.3 g/dL (3.5-5.0); ALKALINE PHOSPHATASE 54.3 U/L (53-141); BILIRUBIN,TOTAL 1.06 mg/dL (0.2-1.3); BLOOD UREA NITROGEN 13.5 mg/dL (7-17); CALCIUM 8.48 mg/dL (8.4-10.2); CARBON DIOXIDE 21.9 mmol/L (22-30.0); CHLORIDE 99.5 mmol/L (98-107); CREATININE 1.18 mg/dL (0.60-1.30); GLUCOSE 117.6 mg/dL (74-106); POTASSIUM 2.99 mmol/L (3.5-5.1); SODIUM 135.4 mmol/L (134.5-145); TOTAL PROTEIN 7.2 g/dL (6.3-8.2)
[2025-01-10] MEDS: POTASSIUM CHLORIDE 20 MEQ/100 ML PREMIX 20 MEQ/100 ML BAG IV ONE (08:56)
[2025-01-10] MEDS: K-DUR PO ONE (08:56)
--- NOTE | 2025-01-10 10:08 | RS.OTINEVL ---
Subjective Patient information Date of Evaluation: 01/10/25 Date of Arrival on Unit: 01/08/25 Admitted From:: Home Diagnosis: Dizziness, N & V, Pneumonia PRECAUTIONS: Fall risk, weakness, Usual Living Arrangement: Alone Living Arrangement Comments: [place]. Home Environment: House Medical History: Diabetes and Arthritis (osteoarthritis and psoriatic arthritis) Medical History Comments:: migraines, Surgical History: Shoulder Replacement (R rotator cuff repair), Lumbar Spine (laminectomy) and Hysterectomy Surgical History Comments:: R knee meniscus repair Subjective Information/ Patient Comments:: "I was able to walk to the bathroom and wipe my own butt." Level of function Prior to this admission, the patient could do the following:: Independent Selfcare, Independent ADL's, Independent Ambulation, Partially Dependent Ambulation, Perform Community Center Coordinator/Cooking, Drive, Participated in Social Activities Outside home and Volunteer/Work Abilities prior to this admission: 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 Current Level of Function: Partially Dependent Current Equipment Used at Home: walking stick, c pap Pain Assessment Pain Side: right Pain Location Body Site: Shoulder Pain Aggravating Factors: ADL's, Changing Position, Exercise/Activity, Standing and Walking Pain Alleviating Factors: Position Change Interventions Objective Patient Orientation: Person, Place, Time and Situation Current Interventions: IV's and Oxygen Observation: Pt is feeling much better today. Pt sat EOB Independently. Pt stood side EOB CGA. Pt has weakness of RUE shoulder. LUE has WFL AROM and strength is a 4+/5. RUE is 3-/5. Interventions ROM Right Upper Extremity AROM: Slight limitation (weakness) Left Upper Extremity AROM: WFL's Strength Right Upper Extremity: Moderate Weakness Left Upper Extremity: Normal Sensation Right Upper Extremity: Intact/Normal Left Upper Extremity: Intact/Normal Balance Sitting Balance Static Sitting Balance: Normal Dynamic Sitting Balance: Normal Standing Balance Static Standing Balance: Normal Dynamic Standing Balance: Normal ADL Skills Self Feeding Self Feeding: Independent Grooming Grooming: Min Assist and 1 person assist Grooming Set-up: Standing Bathing Bathing UE: CGA Bathing LE: Min Assist Bathing Set-up: Shower Dressing Dressing UE: Independent Dressing LE: CGA Toilet Management Toilet Hygiene: Independent Toilet Clothing Management: Independent Functional Mobility Bed Mobility Rolling R/L: Independent Scooting: Independent Supine to Sit: Independent Sit to Supine: Independent Transfers Sit to Stand: CGA Stand to Sit: CGA Stand Pivot Transfers: CGA Ambulation Weight Bearing Status: FWB Assistance needed with Ambulation: CGA and 1 person assist Safety Awareness Safety Awareness: Good RADHA INDEX SCORE: . Additional Treatment Performed Time with patient Length of Evaluation: 18 Total treatment time: 20 Activities Do you enjoy playing games?: Yes Would you be interested in leaving your room for activities?: Yes Would you enjoy group activities?: Yes Do you have difficulty with your vision?: No Patient Education Patient Education: Education of diagnosis, Home Exercise Program and Education of Plan of Care Teaching Recipient: Patient Teaching Methods: Teach Back Method Used, Discussion and Demonstration Assessment Problem List:: Decreased level of function, Requires training/education, Decreased safety/Risk of falls and Weakness Rehab Potential: Good Evaluation Complexity: HISTORY: Medium, EXAM OF BODY SYSTEMS: Medium and CLINICAL DECISION MAKING: Medium Patient's Goal(s): To get stronger and return to her farm. Short Term Goals Goals GOAL 1: Pt to increase RUE strength to 3/5. Goal to be met by: 01/13/25 GOAL 2: Pt to be Independent with home exercises for RUE shoulder. Goal to be met by: 01/13/25 GOAL 3: Pt to increase dyn. std. bal. to Fair+. Goal to be met by: 01/13/25 GOAL 4: Pt to increase Bicep curl strength to 4/5. Goal to be met by: 01/13/25 GOAL 5: Pt to be Independent with standing at sink and brushing her teeth. Goal to be met by: 01/13/25 Optical Technician Goals GOAL 1: Pt to be independent with ADLs. Goal to be met by: 01/15/25 GOAL 2: Pt to increase RUE strength to 4/5. Goal to be met by: 01/15/25 GOAL 3: Pt to increase dyn. std. bal. to G-. Goal to be met by: 01/15/25 Plan Plan of Care: Therapeutic EX, Therapeutic Activity and Self-Care/Home Management Frequency of Treatment: 1-2 X day, as tolerated Duration of Treatment: 6 days Anticipated Discharge Destination: Home Treatment Diagnosis (ICD 10 Codes): R53.1 Weakness, R26.81 Impaired balance, RUE shoulder pain M25.611 Has the Physician been added for Co-signature?: Yes
[2025-01-10] MEDS ORDERED: HUMULIN R (10ML) SUBCUT PRN (11:06)
--- NOTE | 2025-01-10 11:06 | PCM.PROG ---
Date/Time Seen Date Seen by Provider: 01/10/25 Time Seen by Provider: 08:50 Provider Provider[facility] LIANET BLISS[facility] Chief Complaint Chief Complaint: dizziness and N/V Subjective Subjective: Dizziness resolved. Did vomit yesterday afternoon. Feeling much better today. On 3L NC Objective Appearance: Positive No Apparent Distress and Alert and Oriented x3 Chest/Lungs: Positive Symmetrical With Equal Breath Sounds, Rhonci (mild to LL lobe) and Good Air Movement all 4 Lung ; Negative Rales or Wheezes Heart: Positive RRR and Pulses Normal; Negative Tachycardia or Bracycardia GI/: Positive Soft, Nontender, Bowel Sounds Normal and No Distention Musculoskeletal: Positive Normal Gait and Station Neurological: Positive Sensation Intact, Motor intact, Reflexes Intact, Alert, Oriented and Other (generalized weakness) Vital Signs Vital Signs: Vital Signs: Last 24 Hours 01/09/25 13:00 01/09/25 14:00 01/09/25 14:00 Temperature 100.5 F H Temperature Source Temporal Artery Scan Pulse Rate 108 H Respiratory Rate 20 Blood Pressure 168/82 H Blood Pressure Mean 110 Blood Pressure Location Right Arm Blood Pressure Position Supine O2 Sat by Pulse Oximetry 94 L 92 L Oxygen Delivery Method Nasal Cannula Nasal Cannula Oxygen Flow Rate 2 2 Telemetry Type Remote Telemetry Telemetry Monitoring Continues Irregular Telemetry Rate (Approximate) 110-120 BPM Telemetry Heart Rate 110 H Telemetry SPO2 EKG GA Interval 0.14 EKG QRS Interval 0.07 Telemetry Strip Reading 01/09/25 17:48 01/09/25 19:00 01/09/25 19:54 Temperature 99.7 F Temperature Source Temporal Artery Scan Pulse Rate 104 H Respiratory Rate 20 Blood Pressure 168/89 H Blood Pressure Mean 115 Blood Pressure Location Left Arm Blood Pressure Position Supine O2 Sat by Pulse Oximetry 90 L Oxygen Delivery Method Room Air Nasal Cannula Oxygen Flow Rate 3 Telemetry Type Remote Telemetry Telemetry Monitoring Continues Irregular Telemetry Rate (Approximate) Telemetry Heart Rate 109 H Telemetry SPO2 EKG GA Interval 0.15 EKG QRS Interval 0.12 H Telemetry Strip Reading ST w BBB 01/09/25 20:00 01/09/25 22:00 01/10/25 01:00 Temperature 100.4 F H Temperature Source Temporal Artery Scan Pulse Rate 100 Respiratory Rate 22 H Blood Pressure 113/73 Blood Pressure Mean 86 Blood Pressure Location Right Arm Blood Pressure Position Supine O2 Sat by Pulse Oximetry 93 L Oxygen Delivery Method Nasal Cannula Nasal Cannula Oxygen Flow Rate 3 2 Telemetry Type Remote Telemetry Telemetry Monitoring Continues Irregular Telemetry Rate (Approximate) Telemetry Heart Rate 91 Telemetry SPO2 97 EKG GA Interval 0.14 EKG QRS Interval 0.06 Telemetry Strip Reading SR 01/10/25 02:00 01/10/25 04:52 01/10/25 05:20 Temperature 98.7 F 98.1 F Temperature Source Temporal Artery Scan Temporal Artery Scan Pulse Rate 89 91 Respiratory Rate 20 20 Blood Pressure 103/66 103/60 Blood Pressure Mean 78 74 Blood Pressure Location Left Arm Left Arm Blood Pressure Position Supine Supine O2 Sat by Pulse Oximetry 97 98 95 Oxygen Delivery Method Nasal Cannula Nasal Cannula Nasal Cannula Oxygen Flow Rate 3 3 Telemetry Type Telemetry Monitoring Irregular Telemetry Rate (Approximate) Telemetry Heart Rate Telemetry SPO2 EKG GA Interval EKG QRS Interval Telemetry Strip Reading 01/10/25 06:20 01/10/25 06:21 01/10/25 06:21 Temperature Temperature Source Pulse Rate Respiratory Rate Blood Pressure 103/60 109/61 98/60 Blood Pressure Mean Blood Pressure Location Left Arm Left Arm Left Arm Blood Pressure Position Supine Sitting Standing O2 Sat by Pulse Oximetry Oxygen Delivery Method Oxygen Flow Rate Telemetry Type Telemetry Monitoring Irregular Telemetry Rate (Approximate) Telemetry Heart Rate Telemetry SPO2 EKG GA Interval EKG QRS Interval Telemetry Strip Reading 01/10/25 07:00 01/10/25 10:00 Temperature Temperature Source Pulse Rate Respiratory Rate Blood Pressure Blood Pressure Mean Blood Pressure Location Blood Pressure Position O2 Sat by Pulse Oximetry 98 Oxygen Delivery Method Oxygen Flow Rate 3 Telemetry Type Remote Telemetry Telemetry Monitoring Continues Irregular Telemetry Rate (Approximate) Telemetry Heart Rate 88 Telemetry SPO2 97 EKG GA Interval 0.18 EKG QRS Interval 0.09 Telemetry Strip Reading NSR Lab Results Lab Results: Lab Results: Last 24 Hours 01/10/25 05:32 WBC 8.83 RBC 3.64 L Hgb 9.9 L Hct 30.4 L MCV 83.5 MCH 27.2 MCHC 32.6 RDW Coeff of Phillip 15.2 H Plt Count 104 L Immature Gran % (Auto) 2.4 Neut % (Auto) 46.4 Lymph % (Auto) 37.0 [place] % (Auto) 13.9 H Eos % (Auto) 0.1 Baso % (Auto) 0.2 Neut # (Auto) 4.1 Lymph # (Auto) 3.3 [place] # (Auto) 1.2 Eos # (Auto) 0.0 Baso # (Auto) 0.0 Immature Gran # (Auto) 0.2 Sodium 135.4 Potassium 2.99 L Chloride 99.5 Carbon Dioxide 21.9 L Anion Gap 16.99 BUN 13.5 Creatinine 1.18 Estimated GFR (MDRD) 46.00 BUN/Creatinine Ratio 11.44 Glucose 117.6 H Calcium 8.48 Total Bilirubin 1.06 AST 37.0 H ALT 22.8 Alkaline Phosphatase 54.3 Total Protein 7.20 Albumin 3.30 L Globulin 3.90 Albumin/Globulin Ratio 0.84 Procalcitonin 3.03 H Additional Comments Additional Comments: I have independently reviewed and interpreted the labs/EKGs/imaging ordered during this hospital stay. I have reviewed outside records that are available in our EMR that pertain to medical stay including imaging/notes/labs from previous visits. Active Medications Active Medications: Medications Generic Name Dose Route Start Last Admin Trade Name Freq PRN Reason Stop Dose Admin Acetaminophen 650 mg 01/08/25 21:25 01/09/25 22:22 Acetaminophen 325 Mg Tablet PO 650 mg Q4H PRN Administration Mild Pain Albuterol/Ipratropium 3 ml 01/09/25 00:00 01/10/25 04:50 Ipratropium/Albuterol Vial.Neb NEB 3 ml RTQ6H EITAN Administration Dextrose 50 ml 01/08/25 21:25 Dextrose 50 % In Water 50 Ml Disp.Syrin IVP ONCE PRN Unconscious Hypoglycemia Protocol Duloxetine HCl 60 mg 01/09/25 09:00 01/10/25 08:51 Duloxetine Hcl 30 Mg Capsule. PO 60 mg DAILY EITAN Administration Famotidine 20 mg 01/09/25 11:00 01/10/25 08:52 Famotidine Inj 20 Mg/2 Ml Vial IVP 20 mg Q12HR EITAN Administration Hydrochlorothiazide 25 mg 01/09/25 09:00 01/10/25 08:51 Hydrochlorothiazide 25 Mg Tablet PO 25 mg DAILY EITAN Administration Piperacillin Sod/Tazobactam 100 mls @ 200 mls/hr 01/09/25 06:00 01/10/25 05:19 Sod 4.5 gm/ Sodium Chloride IV 01/12/25 05:59 200 mls/hr Q6HR EITAN Administration Metoclopramide HCl 5 mg 01/08/25 21:25 01/09/25 08:01 Metoclopramide Hcl 10 Mg/2 Ml IVP 5 mg Q6H PRN Administration Nausea / Vomiting Metoprolol Succinate 25 mg 01/09/25 09:00 01/10/25 08:51 Metoprolol Succinate 25 Mg Tab.Er.24h PO 25 mg DAILY EITAN Administration Ondansetron HCl 4 mg 01/08/25 21:25 01/09/25 15:53 Ondansetron Hcl/Pf 4 Mg/2 Ml Sdv IVP 4 mg Q6H PRN Administration Nausea / Vomiting Pantoprazole Sodium 40 mg 01/09/25 10:30 01/10/25 08:52 Pantoprazole Sodium 40 Mg Vial IVP 40 mg DAILY EITAN Administration Sodium Chloride 1 syr 01/08/25 19:36 0.9% Sodium Chloride 10 Ml Disp.Syrin IVF PRN PRN To flush IV Sulfasalazine 500 mg 01/09/25 09:00 01/10/25 08:51 Sulfasalazine 500 Mg Tablet PO 500 mg 2XD EITAN Administration Plan Plan: 1. Acute Hypoxic Respiratory Failure in the setting of Aspiration Pneumonia - Improving, down to 3L, continue to wean oxygen as tolerated, nebs 2. Aspiration Pneumonia - covering with zosyn, checking strep pneumo, legionella, and sputum culture, nebs 3. Sepsis - met due to white count, tachycardia, and fever, blood cultures prelim neg, procal 3 today, trend 4. Vomiting - Had episode yesterday afternoon, cont protonix and pepcid, zofran and reglan ordered prn, advance diet as tolerated 5. DM2 - accuchecks qid with ssi, hold oral agents 6. HTN - chronic, continue home medications DVT Prophylaxis: Ambulation Review Statement Review Statement: I have personally discussed and reviewed the patient's visit/currently labs/imaging/decision making with Dr. Ford, my supervising attending. Greater that 50 minutes spent with patient, 50% of the time spent with this patient was devoted to counseling and coordination of care.
[2025-01-10] MEDS: VISIPAQUE 320 MG/ML 100ML IVP ONE (18:57)
--- NOTE | 2025-01-10 20:09 | CT ---
EXAM: CT OF THE ABDOMEN AND PELVIS WITH CONTRAST TECHNIQUE: CT of the abdomen and pelvis was performed with contrast. Multiplanar reformats were perf ormed. 100 ml Visipaque HISTORY: Fever and vomiting. COMPARISON: 01/07/2025. FINDINGS: Imaged lower thorax: Bibasilar atelectasis. No large effusions. Trace fluid suspected. 4 mm perica rdial effusion. Liver: Hepatomegaly. Mild steatosis. Gallbladder/Bile Ducts: No biliary dilation. The gallbladder is normal. Spleen: Unremarkable. Pancreas: Normal. Adrenals: Subtle nodularity versus thickening of the left adrenal gland. No discrete lesion clearly differentiated. Kidneys/Ureters: No acute findings. Bowel/mesentery/peritoneum: No bowel obstruction. Appendix not identified. . Diverticulosis is prese nt within the sigmoid colon. No specific findings of acute diverticulitis.. Retroperitoneum/vessels: No aortic aneurysm. No adenopathy. Pelvis: Normal bladder wall contour.. Bones: No aggressive lesion identified.No acute fracture. Degenerative change lumbar spine. IMPRESSION: 1. Diverticulosis without acute evidence of diverticulitis 2. Bibasilar dense atelectasis versus developing infiltrate. This is a slight change from 01/07/2025 . 3. Splenomegaly with mild steatosis. All CT scans are performed using dose optimization techniques as appropriate to the performed exam an d includes at least one of the following: Automated exposure control, adjustment of the mA and/or kV according to size, and the use of iterative reconstruction technique. All CT scans are performed using dose optimization techniques as appropriate to the performed exam an d include at least one of the following: Automated exposure control, adjustment of the mA and/or kV according t o size, and the use of iterative reconstruction technique.
--- NOTE | 2025-01-10 20:09 | CT ---
EXAM: CTA CHEST WITH CONTRAST HISTORY: Shortness of breath COMPARISON: None TECHNIQUE: Multi-slice transaxial helical images are acquired through the chest according to [facility] protocol. 3-D volume images are provided. All CT scans are performed using dose optimization techniques as appropriate to the performed exam and includes at least one of the following: Automate d exposure control, adjustment of the mA and/or kV according to size, and the use of iterative recons truction technique. CONTRAST: 100 mL Visipaque 320 IV FINDINGS: The contrast bolus timing is suboptimal with delayed acquisition timing. No main or lobar emboli are visualized. Segmental to subsegmental emboli cannot be excluded. The heart is mildly en larged. The RV to LV ratio is less than 1.0. The ascending aorta is dilated to 36 mm. No pericardi al effusion. Trace pleural effusions are suggested. There are several small bilateral axillary lymp h nodes. No suspicious lymphadenopathy. Calcified mediastinal and right hilar lymph nodes are noted . The dependent lungs are atelectatic. The nondependent pulmonary veins are mildly dilated. No con solidative infiltrates. No suspicious nodules or masses. The hepatic attenuation is diffusely low relative to the spleen. The solid organs are otherwise hedy sly normal in their visualized portions of the upper abdomen. No suspicious bone lesions or acute osseous abnormalities. IMPRESSION: - Suboptimal contrast bolus timing limiting assessment of the pulmonary arteries. No main or lobar e mboli. Segmental to subsegmental emboli not excluded. - No right ventricular strain. - Trace pleural effusion suggested with subjacent atelectasis. - Cardiomegaly and pulmonary venous hypertension. - Diffuse hepatic steatosis. All CT scans are performed using dose optimization techniques as appropriate to the performed exam an d include at least one of the following: Automated exposure control, adjustment of the mA and/or kV according t o size, and the use of iterative reconstruction technique.
[2025-01-10 21:05] LABS: BORDETELLA PARAPERTUSSIS (PCR) NOT DETECTED (NOT DETECT); BORDETELLA PERTUSSIS (PCR) NOT DETECTED (NOT DETECT); CHLAMYDIA PNEUMONIAE (PCR) NOT DETECTED (NOT DETECT); CORONAVIRUS 229E (PCR) NOT DETECTED (NOT DETECT); CORONAVIRUS HKU1 (PCR) NOT DETECTED (NOT DETECT); CORONAVIRUS NL63 (PCR) NOT DETECTED (NOT DETECT); CORONAVIRUS OC43 (PCR) NOT DETECTED (NOT DETECT); HUMAN METAPNEUMOVIRUS (PCR) NOT DETECTED (NOT DETECT); HUMAN RHINOVIRUS/ENTEROV (PCR) NOT DETECTED (NOT DETECT); INFLUENZA A H1 (PCR) NOT DETECTED (NOT DETECT); INFLUENZA A H1-2009 (PCR) NOT DETECTED (NOT DETECT); INFLUENZA A H3 (PCR) NOT DETECTED (NOT DETECT); INFLUENZA B (PCR) NOT DETECTED (NOT DETECT); MYCOPLASMA PNEUMONIAE (PCR) NOT DETECTED (NOT DETECT); PARAINFLUENZA VIRUS 1 (PCR) NOT DETECTED (NOT DETECT); PARAINFLUENZA VIRUS 2 (PCR) NOT DETECTED (NOT DETECT); PARAINFLUENZA VIRUS 3 (PCR) NOT DETECTED (NOT DETECT); PARAINFLUENZA VIRUS 4 (PCR) NOT DETECTED (NOT DETECT); RESPIRATORY SYNCYTIAL V (PCR) NOT DETECTED (NOT DETECT); SARS_COV_2 (PCR) NOT DETECTED (NOT DETECT)
[2025-01-10 21:53] LABS: ADENOVIRUS (PCR) NOT DETECTED (NOT DETECT)
[2025-01-10] MEDS: DOXYCYCLINE HYCLATE PO SCH (21:53)
[2025-01-10] MEDS: LASIX IVP SCH (21:54)
[2025-01-11 05:44] LABS: BASOPHILS % (AUTO) 0.1 % (0.0-3.0); HEMATOCRIT 30.3 % (37.0-47.0); IMMATURE GRANULOCYTE # (AUTO) 0.1 (0.0-1.0); IMMATURE GRANULOCYTE % (AUTO) 1.3 % (0.0-5.0); LYMPHOCYTES # (AUTO) 4.2 K/uL (0.60-3.4); LYMPHOCYTES % (AUTO) 42.2 (10.0-50.0); MEAN CORPUSCULAR HEMOGLOBIN 27.7 pg (27.0-31.0); MEAN CORPUSCULAR VOLUME 83.9 fl (81.0-99.0); MONOCYTES # (AUTO) 1.2 K/uL (0.4-2.0); MONOCYTES % (AUTO) 11.6 (0-10); NEUTROPHILS # (AUTO) 4.4 K/ul (2.0-6.9); NEUTROPHILS % (AUTO) 44.8 % (42.2-75.2); PLATELET COUNT 111 10^3/uL (140-440); RDW COEFFICIENT OF VARIATION 15.3 % (11.6-14.8); RED BLOOD COUNT 3.61 10^6/ul (4.20-5.40)
[2025-01-11 05:53] LABS: ALANINE AMINOTRANSFERASE 25.6 U/L (0-35); ALBUMIN 3.44 g/dL (3.5-5.0); ALKALINE PHOSPHATASE 58.9 U/L (53-141); ASPARTATE AMINO TRANSFERASE 39.4 U/L (14-36); BILIRUBIN,TOTAL 1.24 mg/dL (0.2-1.3); BLOOD UREA NITROGEN 11.7 mg/dL (7-17); CALCIUM 8.32 mg/dL (8.4-10.2); CHLORIDE 95.8 mmol/L (98-107); CREATININE 1.11 mg/dL (0.60-1.30); GLUCOSE 126.5 mg/dL (74-106); POTASSIUM 2.91 mmol/L (3.5-5.1); SODIUM 133.6 mmol/L (134.5-145); TOTAL PROTEIN 7.42 g/dL (6.3-8.2)
[2025-01-11] MEDS: POTASSIUM CHLORIDE 20 MEQ/100 ML PREMIX 20 MEQ/100 ML BAG IV ONE ×2 (09:19→11:55)
[2025-01-11] MEDS: K-DUR PO ONE (09:22)
--- NOTE | 2025-01-11 09:59 | RS.PTINEVL ---
Subjective Patient information Date of Evaluation: 01/11/25 Date of Arrival on Unit: 01/08/25 Admitted From:: Home Diagnosis: acute hypoxic resp failure, pneumonia Usual Living Arrangement: Alone Living Arrangement Comments: [place]. Home Environment: House Medical History: Diabetes and Arthritis (osteoarthritis and psoriatic arthritis) Medical History Comments:: migraines, Surgical History: Lumbar Spine (laminectomy) and Hysterectomy Surgical History Comments:: R knee meniscus repair , Rotator cuff repair Medications: see chart Subjective Information/ Patient Comments:: pt states that she is feeling a little better today. States that she feels very weak. Level of function Prior to this admission, the patient could do the following:: Independent Selfcare, Independent ADL's, Independent Ambulation, Partially Dependent Ambulation, Perform Design Quality Engineer/Cooking, Drive, Participated in Social Activities Outside home and Volunteer/Work Abilities prior to this admission: pt independent without AD Current Level of Function: Partially Dependent Current Equipment Used at Home: walking stick, c pap Interventions Objective Patient Orientation: Person, Place, Time and Situation Current Interventions: IV's, Oxygen (2 liters) and Telemetry Range of Motion ROM Right Upper Extremity AROM: WFL's Left Upper Extremity AROM: WFL's Right Lower Extremity AROM: WFL's Left Lower Extremity AROM: WFL's Muscle Strength Muscle Strength Right Upper Extremity: Mild Weakness (grossly 4/5) Left Upper Extremity: Mild Weakness (grossly 4/5) Right Lower Extremity: Mild Weakness (hip flex 4-/5, knee flex/ext 4/5, ankle 4/5 ) Left Lower Extremity: Mild Weakness (hip flex 4-/5, knee flex/ext 4/5, ankle 4/5 ) Sensation Sensation Right Upper Extremity: Intact/Normal Left Upper Extremity: Intact/Normal Right Lower Extremity: Intact/Normal Left Lower Extremity: Intact/Normal Palpation Palpation Findings: None/Normal Balance Sitting Balance and Reactions Static Sitting Balance: Good Dynamic Sitting Balance: Fair Standing Balance and Reactions Static Standing Balance: Fair Dynamic Standing Balance: Fair (fair-) Functional Mobility Bed Mobility Comments:: pt seen sitting up in chair Transfers Sit to Stand: CGA Stand to Sit: CGA Safety Awareness Safety Awareness: Good RADHA INDEX SCORE: n/a Ambulation Ambulation Assistive Device Used: Rolling Walker Orthotic/Prosthetic Device: No Distance: 80ft Assistance needed with Ambulation: CGA Quality of Ambulation: pt amb with O2 2 liters Gait Deviations: Forward posture and Short stride Factors Affecting Ambulation: Decreased Balance, Breathing/O2 Saturation, Weakness, Decreased Safety and Limited Endurance Treatment time Units charged Gait trainin Time with patient Length of Evaluation: 19 Total treatment time: 29 Patient Education Education Patient Education: Education of Plan of Care Teaching Recipient: Patient Teaching Methods: Discussion Comments: discussion regarding POC and dc planning Assessment Assessment Problem List:: Decreased level of function, Requires training/education, Decreased safety/Risk of falls and Weakness Rehab Potential: Good Further Therapy Indicated?: Yes Candidate for Swing Bed for Therapy Services?: Feel pt is at too high functional level for swing bed. Evaluation Complexity: HISTORY: Medium, EXAM OF BODY SYSTEMS: Medium, CLINICAL PRESENTATION: Medium and CLINICAL DECISION MAKING: Medium Patient's Goal(s): return to prior level of function Short Term Goals GOAL #1: pt demonstrate independence with rolling and scooting to edge of bed. Goal to be met by: 01/14/25 GOAL #2: Transfer sup to/from sit SBA Goal to be met by: 01/14/25 GOAL #3: transfer sit to/from stand SBA Goal to be met by: 01/14/25 GOAL #4: pt amb with rwx 100ft with CGA to SBA no LOB Goal to be met by: 01/14/25 Camp Dining Room Attendant Goals GOAL #1: pt transfer sup to/from sit to/from stand independently Goal to be met by: 01/16/25 GOAL #2: pt amb with rwx functional household distances independently. Goal to be met by: 01/16/25 GOAL #3: Improve BLE strength 4+/5 Goal to be met by: 01/16/25 Plan Plan of Care: Therapeutic EX and Therapeutic Activity Other:: gait training Frequency of Treatment: 1-2 X day, as tolerated Duration of Treatment: 5 days Anticipated Discharge Destination: Home Treatment Diagnosis (ICD 10 Codes): gait difficulty R26.2 impaired balance R26.81 weakness M62.8` Has the Physician been added for Co-signature?: Yes
--- NOTE | 2025-01-11 11:02 | PCM.PROG ---
Date/Time Seen Date Seen by Provider: 01/11/25 Time Seen by Provider: 09:00 Provider Provider: LIANET BLISS, [facility] Chief Complaint Chief Complaint: dizziness and N/V Subjective Subjective: Continues to have fever and tachycardia at times. Checked imaging last night and showed pleural effusions and cardiomegaly. Pneumonia still present. No acute findings in abdomen. Had diarrhea stool this am. On2L via [place]. States she is feeling better and requesting advancing diet. Still very fatigued Objective Appearance: Positive No Apparent Distress and Alert and Oriented x3 Chest/Lungs: Positive Symmetrical With Equal Breath Sounds, Clear to Auscultation Bilaterally and Good Air Movement all 4 Lung Heart: Positive RRR and Pulses Normal GI/: Positive Soft, Nontender, Bowel Sounds Normal, No Distention and No Organomegaly Musculoskeletal: Positive Not Examined Neurological: Positive Sensation Intact, Motor intact, Reflexes Intact, Alert, Oriented and Other (generalized weaknes) Vital Signs Vital Signs: Vital Signs: Last 24 Hours 01/10/25 13:00 01/10/25 14:00 01/10/25 14:00 Temperature 98.9 F Temperature Source Tympanic Pulse Rate 99 Respiratory Rate 20 Blood Pressure 138/87 Blood Pressure Mean 104 Blood Pressure Location Right Arm Blood Pressure Position Sitting O2 Sat by Pulse Oximetry 94 L 92 L Oxygen Delivery Method Nasal Cannula Nasal Cannula Oxygen Flow Rate 2 2 Telemetry Type Remote Telemetry Telemetry Monitoring Continues Telemetry Heart Rate 102 H Telemetry SPO2 94 EKG MI Interval 0.18 EKG QRS Interval 0.06 Telemetry Strip Reading NSR 01/10/25 18:00 01/10/25 19:00 01/10/25 19:07 Temperature 103.1 F H Temperature Source Oral Pulse Rate 119 H Respiratory Rate 24 H Blood Pressure 155/79 H Blood Pressure Mean 104 Blood Pressure Location Right Arm Blood Pressure Position Supine O2 Sat by Pulse Oximetry 94 L Oxygen Delivery Method Nasal Cannula Nasal Cannula Oxygen Flow Rate 2 2 Telemetry Type Remote Telemetry Telemetry Monitoring Continues Telemetry Heart Rate 108 H Telemetry SPO2 96 EKG MI Interval 0.20 EKG QRS Interval 0.[address] 01/10/25 20:00 01/10/25 21:47 01/11/25 01:00 Temperature 98.7 F Temperature Source Oral Pulse Rate 108 H Respiratory Rate 24 H Blood Pressure 130/73 Blood Pressure Mean 92 Blood Pressure Location Right Arm Blood Pressure Position Sitting O2 Sat by Pulse Oximetry 95 Oxygen Delivery Method Nasal Cannula Nasal Cannula Oxygen Flow Rate 2 3 Telemetry Type Remote Telemetry Telemetry Monitoring Continues Telemetry Heart Rate 95 Telemetry SPO2 EKG MI Interval 0.15 EKG QRS Interval 0.09 Telemetry Strip Reading SR 01/11/25 02:00 01/11/25 05:12 01/11/25 05:22 Temperature 98.4 F 98.7 F Temperature Source Temporal Artery Scan Temporal Artery Scan Pulse Rate 92 109 H Respiratory Rate 20 20 Blood Pressure 129/72 139/74 Blood Pressure Mean 91 95 Blood Pressure Location Right Arm Right Arm Blood Pressure Position Supine Supine O2 Sat by Pulse Oximetry 95 94 L 93 L Oxygen Delivery Method Nasal Cannula Nasal Cannula Nasal Cannula Oxygen Flow Rate 3 2.5 2 Telemetry Type Telemetry Monitoring Telemetry Heart Rate Telemetry SPO2 EKG MI Interval EKG QRS Interval Telemetry Strip Reading 01/11/25 07:00 Temperature Temperature Source Pulse Rate Respiratory Rate Blood Pressure Blood Pressure Mean Blood Pressure Location Blood Pressure Position O2 Sat by Pulse Oximetry Oxygen Delivery Method Oxygen Flow Rate Telemetry Type Remote Telemetry Telemetry Monitoring Continues Telemetry Heart Rate 110 H Telemetry SPO2 EKG MI Interval 0.16 EKG QRS Interval 0.[address] Lab Results Lab Results: Lab Results: Last 24 Hours 01/11/25 01/10/25 05:20 20:05 WBC 9.90 RBC 3.61 L Hgb 10.0 L Hct 30.3 L MCV 83.9 MCH 27.7 MCHC 33.0 RDW Coeff of Phillip 15.3 H Plt Count 111 L Immature Gran % (Auto) 1.3 Neut % (Auto) 44.8 Lymph % (Auto) 42.2 [place] % (Auto) 11.6 H Eos % (Auto) 0.0 Baso % (Auto) 0.1 Neut # (Auto) 4.4 Lymph # (Auto) 4.2 H [place] # (Auto) 1.2 Eos # (Auto) 0.0 Baso # (Auto) 0.0 Immature Gran # (Auto) 0.1 Sodium 133.6 L Potassium 2.91 L Chloride 95.8 L Carbon Dioxide 25.0 Anion Gap 15.71 BUN 11.7 Creatinine 1.11 Estimated GFR (MDRD) 49.00 BUN/Creatinine Ratio 10.54 Glucose 126.5 H Calcium 8.32 L Total Bilirubin 1.24 AST 39.4 H ALT 25.6 Alkaline Phosphatase 58.9 Total Protein 7.42 Albumin 3.44 L Globulin 3.98 Albumin/Globulin Ratio 0.86 Procalcitonin 1.85 H Adenovirus (PCR) Not detected B. pertussis DNA (PCR) Not detected B.parapertussis DNA PCR Not detected C. pneumoniae DNA (PCR) Not detected Coronavirus OC43 (PCR) Not detected Coronavirus HKU1 (PCR) Not detected Coronavirus 229E (PCR) Not detected Coronavirus NL63 (PCR) Not detected Human Metapneumovir PCR Not detected Influenza A (H1) PCR Not detected Influ A (H1N1/09) PCR Not detected Influenza A (H3) PCR Not detected Influenza Type A (PCR) Not detected Influenza B (RT-PCR) Not detected M. pneumoniae (PCR) Not detected Parainfluenza 1 (PCR) Not detected Parainfluenza 2 (PCR) Not detected Parainfluenza 3 (PCR) Not detected Parainfluenza 4 (PCR) Not detected RSV (PCR) Not detected Entero/Rhino (PCR) Not detected SARS-CoV-2 (PCR) Not detected Additional Comments Additional Comments: I have independently reviewed and interpreted the labs/EKGs/imaging ordered during this hospital stay. I have reviewed outside records that are available in our EMR that pertain to medical stay including imaging/notes/labs from previous visits. Active Medications Active Medications: Medications Generic Name Dose Route Start Last Admin Trade Name Freq PRN Reason Stop Dose Admin Acetaminophen 650 mg 01/08/25 21:25 01/10/25 18:42 Acetaminophen 325 Mg Tablet PO 650 mg Q4H PRN Administration Mild Pain Albuterol/Ipratropium 3 ml 01/09/25 00:00 01/11/25 04:49 Ipratropium/Albuterol Vial.Neb NEB 3 ml RTQ6H EITAN Administration Dextrose 50 ml 01/08/25 21:25 Dextrose 50 % In Water 50 Ml Disp.Syrin IVP ONCE PRN Unconscious Hypoglycemia Protocol Doxycycline Hyclate 100 mg 01/10/25 21:20 01/11/25 09:12 Doxycycline Hyclate 100 Mg Capsule PO 01/13/25 21:19 100 mg Q12HR EITAN Administration Duloxetine HCl 60 mg 01/09/25 09:00 01/11/25 09:15 Duloxetine Hcl 30 Mg Capsule.Dr PO 60 mg DAILY EITAN Administration Famotidine 20 mg 01/09/25 11:00 01/11/25 09:01 Famotidine Inj 20 Mg/2 Ml Vial IVP 20 mg Q12HR EITAN Administration Furosemide 20 mg 01/10/25 21:10 01/11/25 05:00 Furosemide Inj 20 Mg/2 Ml Vial IVP 20 mg BIDAC2 EITAN Administration Hydrochlorothiazide 25 mg 01/09/25 09:00 01/11/25 09:12 Hydrochlorothiazide 25 Mg Tablet PO 25 mg DAILY EITAN Administration Piperacillin Sod/Tazobactam 100 mls @ 200 mls/hr 01/09/25 06:00 01/11/25 05:44 Sod 4.5 gm/ Sodium Chloride IV 01/12/25 11:59 200 mls/hr Q6HR EITAN Administration Potassium Chloride 20 meq in 100 mls @ 50 mls/hr 01/11/25 10:00 Potassium Chloride 20 Meq/100 Ml Premix IV 01/11/25 11:59 ONCE ONE Insulin Human Regular 0 unit 01/10/25 11:06 Insulin Regular, Human 100 Unit/Ml (10ml) Vial SUBCUT PRN PRN Hyperglycemia Protocol Metoclopramide HCl 5 mg 01/08/25 21:25 01/09/25 08:01 Metoclopramide Hcl 10 Mg/2 Ml IVP 5 mg Q6H PRN Administration Nausea / Vomiting Metoprolol Succinate 25 mg 01/09/25 09:00 01/11/25 09:15 Metoprolol Succinate 25 Mg Tab.Er.24h PO 25 mg DAILY EITAN Administration Ondansetron HCl 4 mg 01/08/25 21:25 01/09/25 15:53 Ondansetron Hcl/Pf 4 Mg/2 Ml Sdv IVP 4 mg Q6H PRN Administration Nausea / Vomiting Pantoprazole Sodium 40 mg 01/09/25 10:30 01/11/25 09:20 Pantoprazole Sodium 40 Mg Vial IVP 40 mg DAILY EITAN Administration Sodium Chloride 1 syr 01/08/25 19:36 01/11/25 04:58 0.9% Sodium Chloride 10 Ml Disp.Syrin IVF 1 syr PRN PRN Administration To flush IV Sulfasalazine 500 mg 01/09/25 09:00 01/11/25 09:16 Sulfasalazine 500 Mg Tablet PO 500 mg 2XD EITAN Administration Plan Plan: 1. Acute Hypoxic Respiratory Failure in the setting of Aspiration Pneumonia - Improving, down to 2L, continue to wean oxygen as tolerated, nebs 2. Aspiration Pneumonia - covering with zosyn, added doxy last night for atypical coverage since fever persists, strep pneumo, legionella, and sputum culture pending, added MRSA order, respiratory panel negative, nebs 3. Sepsis - met due to white count, tachycardia, and fever, blood cultures prelim neg, procal 1 today, trend 4. Vomiting - Resolved, cont protonix and pepcid, zofran and reglan ordered prn, advance diet as tolerated 5. DM2 - accuchecks qid with ssi, hold oral agents 6. HTN - chronic, continue home medications 7. Diarrhea - stool culture and rotavirus ordered due to continued fever 8. Weakness due to lengthy illness - PT/OT, patient would benefit from rolling walker upon discharge due to profound weakness from 12 days of persistent vomiting. Patient is unable to correct this impairment with a cane. Rolling walker preferred for balance support. DVT Prophylaxis: Ambulation Review Statement Review Statement: I have personally discussed and reviewed the patient's visit/currently labs/imaging/decision making with Dr. Ford, my supervising attending. Greater that 50 minutes spent with patient, 50% of the time spent with this patient was devoted to counseling and coordination of care.
--- NOTE | 2025-01-11 13:41 | ECHO2D ---
Date of Exam: 01/11/25 Ordering Physician: ANTHONY COLLINS NP / DR. PASCALE GIBSON Room #: 120 Reason for Echo: SHORTNESS OF BREATH, HYPERTENSION, TYPE 2 DIABETES M-Mode Normal Adult Results LV Dimensions Normal Adult Results AoV Opening excursions >1.6 >1.6 LVEDD-base- 3.5-5.8 4.4 Ao root dimensions 2.0-3.7 3.6 LVESD-base- 3.1-4.6 L. Atrium dimensions 1.9-3.8 3.8 Post. Wall thickness 0.8-1.1 1.1 IV septum (thickness) 0.7-1.2 1.3 Post. Wall excursion 0.72-1.3 NORMAL Septal motion NORMAL Systolic motion R. Ventricular cavity 1.5-2.0 NORMAL LVEF 60% 70% Paradoxical septal wall motion NORMAL 2-D : 2-D M Mode Echocardiogram was performed using apical four chamber and left parasternal long and short axis views. Mitral, tricuspid and aortic valves appear to be normal. Contractility of the left ventricle seems to be normal, so is the cavity size. Left atrial cavity size and aortic root appear to be normal. There is no pericardial effusion. There is no thrombus noted in the left ventricle or left atrial cavity. COLOR FLOW: MITRAL INFLOW PATTERN A-WAVE > E-WAVE -- DIASTOLIC DYSFUNCTION OF LEFT VENTRICLE. M-MODE: MV: NORMAL AV: NORMAL TV: NORMAL PV: NORMAL CHAMBER SIZE: NORMAL WALL MOTION: NORMAL PERICARDIUM: NORMAL INTERPRETATION: 1. DIFFICULT STUDY -- TECHNICALLY DIFFICULT ECHOCARDIOGRAM 2. LEFT VENTRICULAR HYPERTROPHY 3. NORMAL VALVES 4. NORMAL LEFT VENTRICULAR CONTRACTILITY AND LEFT VENTRICLE SIZE. 5. EVIDENCE OF DIASTOLIC DYSFUNCTION OF LEFT VENTRICLE MTDD
[2025-01-11] MEDS: ZOSYN 4.5 GM 4.5 GM in SODIUM CHLORIDE 100ML 100 ML IV SCH (18:02)
[2025-01-12 05:46] LABS: BASOPHILS % (AUTO) 0.1 % (0.0-3.0); EOSINOPHILS % (AUTO) 0.1 % (0.0-7.0); HEMATOCRIT 30.6 % (37.0-47.0); HEMOGLOBIN 10.1 g/dl (12.0-16.0); IMMATURE GRANULOCYTE # (AUTO) 0.1 (0.0-1.0); IMMATURE GRANULOCYTE % (AUTO) 0.5 % (0.0-5.0); LYMPHOCYTES # (AUTO) 3.1 K/uL (0.60-3.4); MEAN CORPUSCULAR HEMOGLOBIN 26.9 pg (27.0-31.0); MEAN CORPUSCULAR VOLUME 81.6 fl (81.0-99.0); MONOCYTES # (AUTO) 0.7 K/uL (0.4-2.0); MONOCYTES % (AUTO) 7.1 (0-10); NEUTROPHILS # (AUTO) 6.4 K/ul (2.0-6.9); NEUTROPHILS % (AUTO) 62.2 % (42.2-75.2); PLATELET COUNT 138 10^3/uL (140-440); RED BLOOD COUNT 3.75 10^6/ul (4.20-5.40); WHITE BLOOD COUNT 10.25 K/ul (4.6-10.2)
[2025-01-12 06:05] LABS: ALANINE AMINOTRANSFERASE 34.3 U/L (0-35); ALBUMIN 3.38 g/dL (3.5-5.0); ALKALINE PHOSPHATASE 65.2 U/L (53-141); BILIRUBIN,TOTAL 0.8 mg/dL (0.2-1.3); BLOOD UREA NITROGEN 13.4 mg/dL (7-17); CALCIUM 8.34 mg/dL (8.4-10.2); CARBON DIOXIDE 27.3 mmol/L (22-30.0); CHLORIDE 94.2 mmol/L (98-107); CREATININE 1.11 mg/dL (0.60-1.30); POTASSIUM 3.08 mmol/L (3.5-5.1); SODIUM 133.6 mmol/L (134.5-145); TOTAL PROTEIN 7.55 g/dL (6.3-8.2)
[2025-01-12] MEDS: K-DUR PO ONE (09:01)
[2025-01-12] MEDS: HYDROCHLOROTHIAZIDE PO SCH (09:01)
[2025-01-12] MEDS: POTASSIUM CHLORIDE 20 MEQ/100 ML PREMIX 20 MEQ/100 ML BAG IV ONE (10:01)
--- NOTE | 2025-01-12 10:45 | PCM.PROG ---
Date/Time Seen Date Seen by Provider: 01/12/25 Time Seen by Provider: 09:30 Provider Provider: LIANET BLISS[facility] Chief Complaint Chief Complaint: dizziness and N/V Subjective Subjective: Shortness of breath still slightly present after ambulation. Weaned to RA this am and sating 95%. No further diarrhea stools. Objective Appearance: Positive No Apparent Distress and Alert and Oriented x3 Chest/Lungs: Positive Symmetrical With Equal Breath Sounds, Clear to Auscultation Bilaterally and Good Air Movement all 4 Lung Heart: Positive RRR and Pulses Normal GI/: Positive Soft, Nontender, Bowel Sounds Normal and No Distention Musculoskeletal: Positive Normal Gait and Station and Other (trace edema BLE) Neurological: Positive Sensation Intact, Motor intact, Reflexes Intact, Alert and Oriented Vital Signs Vital Signs: Vital Signs: Last 24 Hours 01/11/25 13:00 01/11/25 14:00 01/11/25 14:00 Temperature 97.4 F L Temperature Source Temporal Artery Scan Pulse Rate 94 Pulse Rate [Apical] Respiratory Rate 20 Blood Pressure 100/66 Blood Pressure Mean 77 Blood Pressure Location Right Arm Blood Pressure Position Sitting O2 Sat by Pulse Oximetry 95 95 Oxygen Delivery Method Nasal Cannula Room Air Oxygen Flow Rate 1 1 Telemetry Type Remote Telemetry Telemetry Monitoring Continues Telemetry Heart Rate 99 EKG MN Interval 0.18 EKG QRS Interval 0.10 Telemetry Strip Reading SR 01/11/25 18:00 01/11/25 19:00 01/11/25 20:00 Temperature 97 F L Temperature Source Temporal Artery Scan Pulse Rate 98 Pulse Rate [Apical] Respiratory Rate 20 Blood Pressure 159/82 H Blood Pressure Mean 107 Blood Pressure Location Left Arm Blood Pressure Position Sitting O2 Sat by Pulse Oximetry 95 95 Oxygen Delivery Method Nasal Cannula Nasal Cannula Oxygen Flow Rate 1 1 Telemetry Type Remote Telemetry Telemetry Monitoring Continues Telemetry Heart Rate 106 H EKG MN Interval 0.14 EKG QRS Interval 0.09 Telemetry Strip Reading SR-ST 01/11/25 20:00 01/11/25 21:39 01/12/25 01:00 Temperature 98.3 F Temperature Source Tympanic Pulse Rate 102 H Pulse Rate [Apical] 103 H Respiratory Rate 19 Blood Pressure 126/78 Blood Pressure Mean 94 Blood Pressure Location Left Arm Blood Pressure Position Supine O2 Sat by Pulse Oximetry 97 Oxygen Delivery Method Nasal Cannula Nasal Cannula Oxygen Flow Rate 1 2 Telemetry Type Remote Telemetry Telemetry Monitoring Continues Telemetry Heart Rate 108 H EKG MN Interval 0.15 EKG QRS Interval 0.[address] 01/12/25 02:00 01/12/25 05:23 01/12/25 06:00 Temperature 97.9 F 98.1 F Temperature Source Temporal Artery Scan Temporal Artery Scan Pulse Rate 100 104 H Pulse Rate [Apical] Respiratory Rate 18 18 Blood Pressure 129/75 127/69 Blood Pressure Mean 93 88 Blood Pressure Location Left Arm Left Arm Blood Pressure Position Supine Supine O2 Sat by Pulse Oximetry 95 92 L 93 L Oxygen Delivery Method Nasal Cannula Nasal Cannula Oxygen Flow Rate 2 2 1 Telemetry Type Telemetry Monitoring Telemetry Heart Rate EKG MN Interval EKG QRS Interval Telemetry Strip Reading 01/12/25 07:00 01/12/25 08:00 01/12/25 10:00 Temperature Temperature Source Pulse Rate Pulse Rate [Apical] Respiratory Rate Blood Pressure Blood Pressure Mean Blood Pressure Location Blood Pressure Position O2 Sat by Pulse Oximetry 95 Oxygen Delivery Method Nasal Cannula Room Air Oxygen Flow Rate 1 Telemetry Type Remote Telemetry Telemetry Monitoring Continues Telemetry Heart Rate 99 EKG MN Interval 0.14 EKG QRS Interval 0.08 Telemetry Strip Reading sr Lab Results Lab Results: Lab Results: Last 24 Hours 01/12/25 01/09/25 05:00 03:53 WBC 10.25 H RBC 3.75 L Hgb 10.1 L Hct 30.6 L MCV 81.6 MCH 26.9 L MCHC 33.0 RDW Coeff of Phillip 15.0 H Plt Count 138 L Immature Gran % (Auto) 0.5 Neut % (Auto) 62.2 Lymph % (Auto) 30.0 [place] % (Auto) 7.1 Eos % (Auto) 0.1 Baso % (Auto) 0.1 Neut # (Auto) 6.4 Lymph # (Auto) 3.1 [place] # (Auto) 0.7 Eos # (Auto) 0.0 Baso # (Auto) 0.0 Immature Gran # (Auto) 0.1 Sodium 133.6 L Potassium 3.08 L Chloride 94.2 L Carbon Dioxide 27.3 Anion Gap 15.18 BUN 13.4 Creatinine 1.11 Estimated GFR (MDRD) 49.00 BUN/Creatinine Ratio 12.07 Glucose 146.0 H Calcium 8.34 L Total Bilirubin 0.80 AST 62.0 H ALT 34.3 Alkaline Phosphatase 65.2 Total Protein 7.55 Albumin 3.38 L Globulin 4.17 Albumin/Globulin Ratio 0.81 Procalcitonin 1.11 H Urine Legionella Ag Negative Additional Comments Additional Comments: I have independently reviewed and interpreted the labs/EKGs/imaging ordered during this hospital stay. I have reviewed outside records that are available in our EMR that pertain to medical stay including imaging/notes/labs from previous visits. Active Medications Active Medications: Medications Generic Name Dose Route Start Last Admin Trade Name Freq PRN Reason Stop Dose Admin Acetaminophen 650 mg 01/08/25 21:25 01/11/25 20:34 Acetaminophen 325 Mg Tablet PO 650 mg Q4H PRN Administration Mild Pain Albuterol/Ipratropium 3 ml 01/09/25 00:00 01/12/25 06:13 Ipratropium/Albuterol Vial.Neb NEB 3 ml RTQ6H EITAN Administration Dextrose 50 ml 01/08/25 21:25 Dextrose 50 % In Water 50 Ml Disp.Syrin IVP ONCE PRN Unconscious Hypoglycemia Protocol Doxycycline Hyclate 100 mg 01/10/25 21:20 01/12/25 09:00 Doxycycline Hyclate 100 Mg Capsule PO 01/13/25 21:19 100 mg Q12HR EITAN Administration Duloxetine HCl 60 mg 01/09/25 09:00 01/12/25 09:02 Duloxetine Hcl 30 Mg Capsule.Dr PO 60 mg DAILY EITAN Administration Famotidine 20 mg 01/09/25 11:00 01/12/25 09:05 Famotidine Inj 20 Mg/2 Ml Vial IVP 20 mg Q12HR EITAN Administration Hydrochlorothiazide 50 mg 01/12/25 09:00 01/12/25 09:01 Hydrochlorothiazide 25 Mg Tablet PO 50 mg DAILY EITAN Administration Piperacillin Sod/Tazobactam 100 mls @ 200 mls/hr 01/11/25 19:00 01/12/25 05:32 Sod 4.5 gm/ Sodium Chloride IV 01/12/25 11:59 200 mls/hr Q6HR EITAN Administration Insulin Human Regular 0 unit 01/10/25 11:06 Insulin Regular, Human 100 Unit/Ml (10ml) Vial SUBCUT PRN PRN Hyperglycemia Protocol Metoclopramide HCl 5 mg 01/08/25 21:25 01/09/25 08:01 Metoclopramide Hcl 10 Mg/2 Ml IVP 5 mg Q6H PRN Administration Nausea / Vomiting Metoprolol Succinate 25 mg 01/09/25 09:00 01/12/25 09:01 Metoprolol Succinate 25 Mg Tab.Er.24h PO 25 mg DAILY EITAN Administration Ondansetron HCl 4 mg 01/08/25 21:25 01/09/25 15:53 Ondansetron Hcl/Pf 4 Mg/2 Ml Sdv IVP 4 mg Q6H PRN Administration Nausea / Vomiting Pantoprazole Sodium 40 mg 01/09/25 10:30 01/12/25 09:05 Pantoprazole Sodium 40 Mg Vial IVP 40 mg DAILY EITAN Administration Sodium Chloride 1 syr 01/08/25 19:36 01/11/25 04:58 0.9% Sodium Chloride 10 Ml Disp.Syrin IVF 1 syr PRN PRN Administration To flush IV Sulfasalazine 500 mg 01/09/25 09:00 01/12/25 09:01 Sulfasalazine 500 Mg Tablet PO 500 mg 2XD EITAN Administration Plan Plan: 1. Acute Hypoxic Respiratory Failure in the setting of Aspiration Pneumonia - Resolved, on RA this morning, nebs 2. Aspiration Pneumonia - Improving, transition zosyn to PO augmentin, continue doxy for atypical coverage, strep pneumo, legionella, and sputum culture pending, added MRSA order, respiratory panel negative, nebs 3. Sepsis - met due to white count, tachycardia, and fever, blood cultures neg, procal continues to trend down 4. Vomiting - Resolved, cont protonix and pepcid, zofran and reglan ordered prn 5. DM2 - accuchecks qid with ssi, hold oral agents, ADA diet 6. HTN - chronic, continue home medications 7. Diarrhea - stool culture and rotavirus ordered but no continued diarrhea 8. Weakness due to lengthy illness - PT/OT, patient would benefit from rolling walker upon discharge due to profound weakness from 12 days of persistent vomiting. Patient is unable to correct this impairment with a cane. Rolling walker preferred for balance support. DVT Prophylaxis: Ambulation Review Statement Review Statement: I have personally discussed and reviewed the patient's visit/currently labs/imaging/decision making with Dr. Ford, my supervising attending. Greater that 50 minutes spent with patient, 50% of the time spent with this patient was devoted to counseling and coordination of care.
[2025-01-13 05:49] LABS: BASOPHILS % (AUTO) 0.1 % (0.0-3.0); HEMATOCRIT 29.2 % (37.0-47.0); HEMOGLOBIN 9.7 g/dl (12.0-16.0); IMMATURE GRANULOCYTE # (AUTO) 0.1 (0.0-1.0); IMMATURE GRANULOCYTE % (AUTO) 0.5 % (0.0-5.0); LYMPHOCYTES # (AUTO) 3.6 K/uL (0.60-3.4); LYMPHOCYTES % (AUTO) 33.1 (10.0-50.0); MEAN CORPUSCULAR HEMOGLOBIN 26.9 pg (27.0-31.0); MEAN CORPUSCULAR HGB CONC 33.2 (31.8-35.4); MEAN CORPUSCULAR VOLUME 81.1 fl (81.0-99.0); MONOCYTES # (AUTO) 0.6 K/uL (0.4-2.0); NEUTROPHILS # (AUTO) 6.7 K/ul (2.0-6.9); NEUTROPHILS % (AUTO) 61.3 % (42.2-75.2); PLATELET COUNT 191 10^3/uL (140-440)
[2025-01-13 06:03] LABS: ALANINE AMINOTRANSFERASE 32.5 U/L (0-35); ALBUMIN 3.44 g/dL (3.5-5.0); ALKALINE PHOSPHATASE 63.1 U/L (53-141); ASPARTATE AMINO TRANSFERASE 56.3 U/L (14-36); BILIRUBIN,TOTAL 0.98 mg/dL (0.2-1.3); BLOOD UREA NITROGEN 15.5 mg/dL (7-17); CALCIUM 8.57 mg/dL (8.4-10.2); CARBON DIOXIDE 26.2 mmol/L (22-30.0); CHLORIDE 92.5 mmol/L (98-107); CREATININE 1.03 mg/dL (0.60-1.30); GLUCOSE 140.1 mg/dL (74-106); POTASSIUM 3.57 mmol/L (3.5-5.1); SODIUM 130.4 mmol/L (134.5-145); TOTAL PROTEIN 7.62 g/dL (6.3-8.2)
[2025-01-13] MEDS: AUGMENTIN 875-125 MG TAB PO SCH (09:08)
[2025-01-13] MEDS: TOPROL XL PO SCH (09:09)
--- NOTE | 2025-01-13 09:17 | DI ---
EXAM: SINGLE VIEW CHEST XRAY. Date: January 13, 2025 Comparison: January 08, 2025 History: Shortness of breath Findings: No acute osseous abnormality. There is persistent left lower lobe atelectasis or consolidat ion, significantly changed. The right lung remains clear with calcified granulomas. The cardiac silho uette and pulmonary vasculature are within normal limits. IMPRESSION: No significant change from January 08, 2025. Persistent left lower lobe atelectasis or cons olidation.
--- NOTE | 2025-01-13 12:43 | PCM.PROG ---
Date/Time Seen Date Seen by Provider: 01/13/25 Time Seen by Provider: 09:15 Provider Provider: LIANET BLISS, [facility] Chief Complaint Chief Complaint: dizziness and N/V Subjective Subjective: Feeling much better this morning. Ambulating in room without assistance. Requiring oxygen at night due to being without CPAP. Was on RA during exam and sating 93%. Patient was ambulating in the room and O2 sat dropped to 86% on RA. HR has also been trending up. Up to 120s today. Asymptomatic and states she has done this since she was 17. Takes metoprolol 25 mg daily. Chest xray repeated this am and not showing much change. Objective Appearance: Positive No Apparent Distress and Alert and Oriented x3 Chest/Lungs: Positive Symmetrical With Equal Breath Sounds, Rhonci (L lung base) and Good Air Movement all 4 Lung Vital Signs Vital Signs: Vital Signs: Last 24 Hours 01/12/25 13:00 01/12/25 14:00 01/12/25 14:00 Temperature 98.6 F Temperature Source Temporal Artery Scan Pulse Rate 102 H Respiratory Rate 24 H Blood Pressure 123/73 Blood Pressure Mean 89 Blood Pressure Location Left Radial Artery Blood Pressure Position O2 Sat by Pulse Oximetry 94 L 98 Oxygen Delivery Method Room Air Room Air Oxygen Flow Rate Telemetry Type Remote Telemetry Telemetry Monitoring Continues Telemetry Heart Rate 100 Telemetry SPO2 90 L EKG [place] Interval 0.16 EKG QRS Interval 0.08 Telemetry Strip Reading SR/ST 01/12/25 18:00 01/12/25 19:00 01/12/25 20:00 Temperature 98.8 F Temperature Source Temporal Artery Scan Pulse Rate 119 H Respiratory Rate 20 Blood Pressure 134/91 H Blood Pressure Mean 105 Blood Pressure Location Left Arm Blood Pressure Position Sitting O2 Sat by Pulse Oximetry 92 L 95 Oxygen Delivery Method Room Air Nasal Cannula Oxygen Flow Rate 2 Telemetry Type Remote Telemetry Telemetry Monitoring Continues Telemetry Heart Rate 118 H Telemetry SPO2 92 L EKG [place] Interval 0.18 EKG QRS Interval 0.[address] 01/12/25 20:00 01/12/25 21:10 01/13/25 01:00 Temperature 98.9 F Temperature Source Temporal Artery Scan Pulse Rate 113 H Respiratory Rate 19 Blood Pressure 126/80 Blood Pressure Mean 95 Blood Pressure Location Left Arm Blood Pressure Position Supine O2 Sat by Pulse Oximetry 94 L Oxygen Delivery Method Nasal Cannula Nasal Cannula Oxygen Flow Rate 2 2 Telemetry Type Remote Telemetry Telemetry Monitoring Continues Telemetry Heart Rate 115 H Telemetry SPO2 94 EKG [place] Interval 0.17 EKG QRS Interval 0.[address] 01/13/25 02:00 01/13/25 05:26 01/13/25 06:00 Temperature 99.3 F Temperature Source Temporal Artery Scan Pulse Rate 114 H 108 H Respiratory Rate 17 Blood Pressure 134/74 Blood Pressure Mean 94 Blood Pressure Location Left Arm Blood Pressure Position Supine O2 Sat by Pulse Oximetry 92 L 90 L 92 L Oxygen Delivery Method Nasal Cannula Nasal Cannula Nasal Cannula Oxygen Flow Rate 2 2 2 Telemetry Type Telemetry Monitoring Telemetry Heart Rate Telemetry SPO2 EKG [place] Interval EKG QRS Interval Telemetry Strip Reading 01/13/25 07:00 01/13/25 08:00 01/13/25 10:00 Temperature 98.7 F Temperature Source Temporal Artery Scan Pulse Rate 114 H Respiratory Rate 20 Blood Pressure 121/69 Blood Pressure Mean 86 Blood Pressure Location Right Arm Blood Pressure Position O2 Sat by Pulse Oximetry 90 L Oxygen Delivery Method Nasal Cannula Room Air Oxygen Flow Rate 2 Telemetry Type Remote Telemetry Telemetry Monitoring Continues Telemetry Heart Rate 119 H Telemetry SPO2 119 H EKG [place] Interval 0.16 EKG QRS Interval 0.[address] 01/13/25 10:00 Temperature Temperature Source Pulse Rate Respiratory Rate Blood Pressure Blood Pressure Mean Blood Pressure Location Blood Pressure Position O2 Sat by Pulse Oximetry 92 L Oxygen Delivery Method Room Air Oxygen Flow Rate Telemetry Type Telemetry Monitoring Telemetry Heart Rate Telemetry SPO2 EKG [place] Interval EKG QRS Interval Telemetry Strip Reading Lab Results Lab Results: Lab Results: Last 24 Hours 01/13/25 05:23 WBC 10.90 H RBC 3.60 L Hgb 9.7 L Hct 29.2 L MCV 81.1 MCH 26.9 L MCHC 33.2 RDW Coeff of Phillip 15.0 H Plt Count 191 D Immature Gran % (Auto) 0.5 Neut % (Auto) 61.3 Lymph % (Auto) 33.1 [place] % (Auto) 5.0 Eos % (Auto) 0.0 Baso % (Auto) 0.1 Neut # (Auto) 6.7 Lymph # (Auto) 3.6 H [place] # (Auto) 0.6 Eos # (Auto) 0.0 Baso # (Auto) 0.0 Immature Gran # (Auto) 0.1 Sodium 130.4 L Potassium 3.57 Chloride 92.5 L Carbon Dioxide 26.2 Anion Gap 15.27 BUN 15.5 Creatinine 1.03 Estimated GFR (MDRD) 54.00 BUN/Creatinine Ratio 15.04 Glucose 140.1 H Calcium 8.57 Total Bilirubin 0.98 AST 56.3 H ALT 32.5 Alkaline Phosphatase 63.1 Total Protein 7.62 Albumin 3.44 L Globulin 4.18 Albumin/Globulin Ratio 0.82 Procalcitonin 0.55 H Additional Comments Additional Comments: I have independently reviewed and interpreted the labs/EKGs/imaging ordered during this hospital stay. I have reviewed outside records that are available in our EMR that pertain to medical stay including imaging/notes/labs from previous visits. Active Medications Active Medications: Medications Generic Name Dose Route Start Last Admin Trade Name Freq PRN Reason Stop Dose Admin Acetaminophen 650 mg 01/08/25 21:25 01/11/25 20:34 Acetaminophen 325 Mg Tablet PO 650 mg Q4H PRN Administration Mild Pain Albuterol/Ipratropium 3 ml 01/09/25 00:00 01/13/25 12:17 Ipratropium/Albuterol Vial.Neb NEB 3 ml RTQ6H EITAN Administration Amoxicillin/Clavulanate Potassium 1 tab 01/13/25 09:00 01/13/25 09:08 Amoxicillin/Potassium Clav 875/125 Mg Tablet PO 01/16/25 08:59 1 tab Q12HR EITAN Administration Dextrose 50 ml 01/08/25 21:25 Dextrose 50 % In Water 50 Ml Disp.Syrin IVP ONCE PRN Unconscious Hypoglycemia Protocol Doxycycline Hyclate 100 mg 01/10/25 21:20 01/13/25 09:08 Doxycycline Hyclate 100 Mg Capsule PO 01/13/25 21:19 100 mg Q12HR EITAN Administration Duloxetine HCl 60 mg 01/09/25 09:00 01/13/25 09:08 Duloxetine Hcl 30 Mg Capsule.Dr PO 60 mg DAILY EITAN Administration Famotidine 20 mg 01/09/25 11:00 01/13/25 09:08 Famotidine Inj 20 Mg/2 Ml Vial IVP 20 mg Q12HR EITAN Administration Hydrochlorothiazide 50 mg 01/12/25 09:00 01/12/25 09:01 Hydrochlorothiazide 25 Mg Tablet PO 50 mg DAILY EITAN Administration Insulin Human Regular 0 unit 01/10/25 11:06 Insulin Regular, Human 100 Unit/Ml (10ml) Vial SUBCUT PRN PRN Hyperglycemia Protocol Metoclopramide HCl 5 mg 01/08/25 21:25 01/09/25 08:01 Metoclopramide Hcl 10 Mg/2 Ml IVP 5 mg Q6H PRN Administration Nausea / Vomiting Metoprolol Succinate 50 mg 01/13/25 09:00 01/13/25 09:09 Metoprolol Succinate 25 Mg Tab.Er.24h PO 50 mg DAILY EITAN Administration Metoprolol Tartrate 5 mg 01/13/25 12:42 Metoprolol Tartrate 5 Mg/5 Ml Vial IVP 01/13/25 12:43 ONCE ONE Ondansetron HCl 4 mg 01/08/25 21:25 01/09/25 15:53 Ondansetron Hcl/Pf 4 Mg/2 Ml Sdv IVP 4 mg Q6H PRN Administration Nausea / Vomiting Pantoprazole Sodium 40 mg 01/09/25 10:30 01/13/25 09:08 Pantoprazole Sodium 40 Mg Vial IVP 40 mg DAILY EITAN Administration Sodium Chloride 1 syr 01/08/25 19:36 01/12/25 12:42 0.9% Sodium Chloride 10 Ml Disp.Syrin IVF 1 syr PRN PRN Administration To flush IV Sulfasalazine 500 mg 01/09/25 09:00 01/13/25 09:08 Sulfasalazine 500 Mg Tablet PO 500 mg 2XD EITAN Administration Plan Plan: 1. Acute Hypoxic Respiratory Failure in the setting of Aspiration Pneumonia - Regressed, requiring oxygen at night but has sleep apnea, sat dropping on ambulation today to 86%, nebs 2. Aspiration Pneumonia - Improving, transition zosyn to PO augmentin, continue doxy for atypical coverage, strep pneumo pending, legionella and sputum culture negative, MRSA negative, respiratory panel negative, nebs, repeat xray not showing much change in pneumonia yet at this time 3. Sepsis - met due to white count, tachycardia, and fever, blood cultures neg, procal continues to trend down 4. Vomiting - Resolved, cont protonix and pepcid, zofran and reglan ordered prn 5. DM2 - accuchecks qid with ssi, hold oral agents, ADA diet 6. HTN - chronic, continue home medications 7. Diarrhea - stool culture and rotavirus ordered but no continued diarrhea 8. Weakness due to lengthy illness - PT/OT, patient would benefit from rolling walker upon discharge due to profound weakness from 12 days of persistent vomiting. Patient is unable to correct this impairment with a cane. Rolling walker preferred for balance support. 9. Tachycardia - up to 120s at times, asymptomatic, takes metoprolol 25 - increased to 50 mg with minimal response this am, ordered 5 mg IVP, check d- dimer d/t possibility of PE, will repeat CTA if elevated 10. Hyponatremia - mild, asymptomatic, has received diuretics, holding HCTZ, fluid restriction 1800mL 11. New onset CHF - pleural effusions on CTA, echo completed and EF normal, LVH and diastolic dysfunction noted, diuresed with lasix, transitioned to home HCTZ and increased dose to 50 mg DVT Prophylaxis: Ambulation Review Statement Review Statement: I have personally discussed and reviewed the patient's visit/currently labs/imaging/decision making with Dr. Ford, my supervising attending. Greater that 50 minutes spent with patient, 50% of the time spent with this patient was devoted to counseling and coordination of care.
[2025-01-13] MEDS: LOPRESSOR IVP ONE (13:35)
[2025-01-13 15:10] LABS: SPECIMEN SOURCE Urine (.); STEP PNEUMO ORGANISM ID Not indicated. (.); STREP PNEUMO AG Negative (Negative); STREP PNEUMO BODY FLUID CULT Not indicated. (.)
[2025-01-13] MEDS: VISIPAQUE 320 MG/ML 100ML IVP ONE (18:10)
--- NOTE | 2025-01-13 19:13 | CT ---
EXAM: CTA CHEST FOR PE HISTORY: Shortness of breath COMPARISON: 01/10/2025 TECHNIQUE: CTA of the chest was performed from the lung apices to the upper abdomen after Omnipaqu e IV contrast was administered using PE protocol. 3-D imaging was also provided. FINDINGS: Respiratory motion artifact limits evaluation of the distal segmental pulmonary arteries. However, n o central PE.. No CT findings of acute right ventricular strain or pulmonary infarct. Consolidation in the lower lobes appears similar to the previous CTA chest from 01/10/2025. No pleural effusion. The heart is enlarged. The pulmonary trunk is dilated which can be seen with pulmonary arterial hyper tension. IMPRESSION: Limited as above. No central PE or findings of acute right ventricular strain. No large pleural effusion. Consolidation in the lower lobes similar to the previous CTA chest from 01/10/2025. Please see above description and additional findings. All CT scans are performed using dose optimization techniques as appropriate to the performed exam an d include at least one of the following: Automated exposure control, adjustment of the mA and/or kV according t o size, and the use of iterative reconstruction technique.
[2025-01-14 05:57] LABS: BASOPHILS % (AUTO) 0.2 % (0.0-3.0); EOSINOPHILS % (AUTO) 0.1 % (0.0-7.0); HEMATOCRIT 29.6 % (37.0-47.0); HEMOGLOBIN 9.8 g/dl (12.0-16.0); IMMATURE GRANULOCYTE # (AUTO) 0.1 (0.0-1.0); IMMATURE GRANULOCYTE % (AUTO) 0.6 % (0.0-5.0); LYMPHOCYTES # (AUTO) 5.4 K/uL (0.60-3.4); LYMPHOCYTES % (AUTO) 38.2 (10.0-50.0); MEAN CORPUSCULAR HEMOGLOBIN 27.2 pg (27.0-31.0); MEAN CORPUSCULAR HGB CONC 33.1 (31.8-35.4); MEAN CORPUSCULAR VOLUME 82.2 fl (81.0-99.0); MONOCYTES # (AUTO) 0.5 K/uL (0.4-2.0); MONOCYTES % (AUTO) 3.8 (0-10); NEUTROPHILS # (AUTO) 8.1 K/ul (2.0-6.9); NEUTROPHILS % (AUTO) 57.1 % (42.2-75.2); PLATELET COUNT 236 10^3/uL (140-440); RDW COEFFICIENT OF VARIATION 15.1 % (11.6-14.8); WHITE BLOOD COUNT 14.14 K/ul (4.6-10.2)
[2025-01-14 06:09] LABS: ALANINE AMINOTRANSFERASE 38.3 U/L (0-35); ALBUMIN 3.43 g/dL (3.5-5.0); ASPARTATE AMINO TRANSFERASE 65.3 U/L (14-36); BILIRUBIN,TOTAL 0.89 mg/dL (0.2-1.3); BLOOD UREA NITROGEN 16.8 mg/dL (7-17); CALCIUM 8.33 mg/dL (8.4-10.2); CARBON DIOXIDE 23.9 mmol/L (22-30.0); CHLORIDE 94.3 mmol/L (98-107); CREATININE 0.93 mg/dL (0.60-1.30); GLUCOSE 146.5 mg/dL (74-106); POTASSIUM 3.12 mmol/L (3.5-5.1); SODIUM 131.7 mmol/L (134.5-145); TOTAL PROTEIN 7.72 g/dL (6.3-8.2)
[2025-01-14] MEDS: K-DUR PO ONE (08:44)
[2025-01-14] MEDS: DOXYCYCLINE HYCLATE PO SCH (09:06)
--- NOTE | 2025-01-14 12:48 | DCSUM ---
Admission Date Admission Date: 01/08/25 Discharge Date Discharge Date: 01/14/25 Admission Diagnosis Admission Diagnosis: 1. Acute Hypoxic Respiratory Failure in the setting of Aspiration Pneumonia Discharge Diagnosis Discharge Diagnosis: 1. Acute Hypoxic Respiratory Failure in the setting of Aspiration Pneumonia - improved 2. Aspiration Pneumonia - Improving 3. Sepsis - ruled out, blood cultures negative 4. Vomiting - Resolved 5. DM2 6. HTN - chronic 7. Diarrhea - resolved 8. Weakness due to lengthy illness 9. Sinus Tachycardia - improved 10. Hyponatremia - mild 11. New onset diastolic HF with preserved EF -no pleural effusion noted on most recent CTA Hospital Provider Hospital Provider: Mayelin Fontana PA-C [facility] Primary Care Physician Primary Care Physician: PASCALE GIBSON Summary of History and Physical Summary of History and Physical: 64-year-old female with past medical history of hypertension sleep apnea type 2 diabetes and iron deficiency anemia presented to the ER with a 12-day history of nausea and vomiting. Patient was seen in the ER on 01/07 and sent home with antiemetics. Patient states over the last 2 days she has felt as if she had a fever but was unable to check to see what her temp was due to broken thermometers. Has had chills, sweats, and continued to have vomiting. Upon a rrival to the ER patient's temp was found to be 102.8, heart rate in the 120s, and tachypneic with respirations in the 20s. Patient was also found to be hypoxic with O2 sat in the 80s. Hypoxia continued despite placement of 2 L/min nasal cannula. Patient required up to [address] scan completed on 01/07 was negative for acute findings. Chest x-ray completed this visit showed left lower lobe pneumonia. She was given Levaquin and cefepime in the ER. At this time patient states that vomiting has resolved but nausea is still somewhat present. Denies any shortness of breath. Does report productive cough with yellow sputum. At this time she is requiring 2 L of oxygen via nasal cannula. Admitted to [facility] inpatient Hospital Course Subjective: Patient was covered for aspiration pneumonia given history of vomiting. Legionella, strep pneumo, and mrsa swab negative. Blood cultures negative. Viral panel negative. Diarrhea resolved. Patient continued to be hypoxic and spike fevers. CTA ruled out PE but was not the greatest quality study. CT a/p negative for acute findings. Echo demonstrated preserved EF but evidence of diastolic dysfunction. She was gently diuresed. Walker better overall. However she continued to require 2L and have tachycardia. On 01/13 repeat CTA performed due to first study not being great quality, still no PE noted. Persistent consolidations noted. Pt has been transitioned to augmentin and doxy. She is overall feeling better, does get dyspneic with exertion but asking to be discharged to home today. States she feels well enough to go home. Will discharge on remainder of antibiotics for 2 more days, increased dose of metoprolol, and home O2 and walker. F/u with pcp as scheduled. Red flags on when to return discussed. Appearance: Pleasant, No Apparent Distress and Alert HEENT: MMM CVS: Other (RRR) Abdomen: Soft, Non-Tender and No Distention Respiratory: No Accessory Muscle Use Extremities: No Edema Vital Signs: Most Recent Vital Signs Temperature 96.6 F L 01/14/25 10:00 Temperature Source Temporal Artery Scan 01/14/25 10:00 Temperature Source Oral 01/08/25 20:25 Pulse Rate 104 H 01/14/25 10:00 Respiratory Rate 22 H 01/14/25 10:00 Blood Pressure 103/73 01/14/25 10:00 Blood Pressure Mean 83 01/14/25 10:00 Blood Pressure Left Arm 105/70 01/08/25 23:23 Blood Pressure Location Left Arm 01/14/25 10:00 Blood Pressure Position Sitting 01/14/25 10:00 O2 Sat by Pulse Oximetry 93 L 01/14/25 10:00 Oxygen Delivery Method Nasal Cannula 01/14/25 10:00 Oxygen Flow Rate 2 01/14/25 10:00 Height 5 ft 5 in 01/08/25 23:23 Weight 125.2 kg 01/14/25 06:00 Telemetry Type Remote Telemetry 01/14/25 07:00 Telemetry Monitoring Continues 01/14/25 07:00 Irregular Telemetry Rate (Approximate) 110-120 BPM 01/09/25 13:00 Telemetry Heart Rate 104 H 01/14/25 07:00 Telemetry SPO2 93 01/14/25 01:00 EKG LA Interval 0.14 01/14/25 07:00 EKG QRS Interval 0.10 01/14/25 07:[address] 01/14/25 07:00 Imaging: EXAM: CT ABDOMEN AND PELVIS WITH CONTRAST FINDINGS: Lower Thorax: Calcified granuloma lower lung on the right with mild dependent atelectatic type changes at the lung bases. Calcified granuloma on the left. The heart is upper limits of normal without pericardial fluid. Mild coronary artery calcifications. Pulmonary arteries are normal. There are nonenlarged lymph nodes in the mediastinal and hilar regions, as seen with calcified right hilar lymph nodes. The visualized esophagus is contracted without definite abnormal finding. Liver: No focal hepatic abnormality. Biliary: The gallbladder and bile ducts are normal. Pancreas: No mass or evidence of pancreatitis. No duct dilation. Spleen: Splenic granuloma. Spleen demonstrates no abnormal finding otherwise. Adrenals: Diffuse prominence to the adrenal glands may be due to hyperplasia though this may be somewhat nodular on name left 2.1 x 1.6 cm. This is not consistent with an adenoma at this time. Where would recommend adrenal protocol CT or MRI to further evaluate. No other adrenal abnormality. Kidneys/Ureters: Kidney on the left demonstrates no mass or dominant cyst or intrarenal calculus or significant hydronephrosis. The ureter is within normal limits bilaterally. There is no right renal mass or dominant cyst or hydronephrosis or intra or renal calculus. GI Tract: The stomach is contracted without abnormal finding. Duodenum is normal. Small bowel is overall within normal limits. Terminal ileum is normal. Appendix May be small areas surgical absent. No secondary CT signs for appendicitis. Contracted colon without definite wall thickening or mass. Diverticulosis without diverticulitis. Peritoneal Cavity: No ascites. No free air. Retroperitoneum: No fluid collection. Lymph Nodes: No lymphadenopathy. Vasculature: Diffuse mild aortic atherosclerotic calcifications. No aortic or iliac aneurysm. Celiac, superior mesenteric, and inferior mesenteric arteries are grossly patent. Limited assessment of the portal and hepatic veins and IVC is unremarkable within limitations of the phase of IV contrast. Pelvis: Prostate is within normal limits. Similar vesicles are normal. Bladder is normal. Bones/Soft Tissues: Degenerative changes throughout the spine with endplate and facet joint and degenerative disc change. No fracture or dislocation. Mild degenerative change of the hips and SI joints. Prominent disc space narrowing L5-S1. IMPRESSION: 1. Dependent atelectatic change within the lung bases without significant acute process in the chest. Heart is borderline prominent. 2. Upper abdominal organs predominantly appear to be within normal limits though there is nodular appearance to the adrenal gland on the left 2.1 x 1.6 cm not confirmed to be an adenoma by this exam. We would recommend further nonemergent evaluation with CT or MRI adrenal protocol to further evaluate. No other adrenal abnormality. 3. Colon is contracted throughout. Definite wall thickening or fat stranding is not seen. There is diverticulosis without diverticulitis. Appendix is either small or surgically absent without secondary CT signs for appendicitis. The remainder of the bowel appears within normal limits. 4. No significant fat stranding or free fluid or free air. No adenopathy or mass or other acute finding. 5. Granulomatous changes, as above. 6. Bony degenerative change without acute bony or soft tissue finding. EXAM: CHEST RADIOGRAPH (1 VIEW) FINDINGS: Lines, Tubes, Devices: None Lungs and Pleura: Small left pleural effusion with adjacent consolidation. Ground-glass densities in the left lung. Cardiac silhouette: Normal. Bones: No acute abnormality. IMPRESSION: Findings suggesting left lower lobe pneumonia. Clinical follow-up with follow up imaging to ensure resolution and exclude other etiologies. EXAM: CTA CHEST WITH CONTRAST HISTORY: Shortness of breath COMPARISON: None TECHNIQUE: Multi-slice transaxial helical images are acquired through the chest according to an angiogram protocol. 3-D volume images are provided. All CT scans are performed using dose optimization techniques as appropriate to the performed exam and includes at least one of the following: Automated exposure control, adjustment of the mA and/or kV according to size, and the use of iterative reconstruction technique. CONTRAST: 100 mL Visipaque 320 IV FINDINGS: The contrast bolus timing is suboptimal with delayed acquisition timing. No main or lobar emboli are visualized. Segmental to subsegmental emboli cannot be excluded. The heart is mildly enlarged. The RV to LV ratio is less than 1.0. The ascending aorta is dilated to 36 mm. No pericardial effusion. Trace pleural effusions are suggested. There are several small bilateral axillary lymph nodes. No suspicious lymphadenopathy. Calcified mediastinal and right hilar lymph nodes are noted. The dependent lungs are atelectatic. The nondependent pulmonary veins are mildly dilated. No consolidative infiltrates. No suspicious nodules or masses. The hepatic attenuation is diffusely low relative to the spleen. The solid organs are otherwise grossly normal in their visualized portions of the upper abdomen. No suspicious bone lesions or acute osseous abnormalities. IMPRESSION: - Suboptimal contrast bolus timing limiting assessment of the pulmonary arteries. No main or lobar emboli. Segmental to subsegmental emboli not excluded. - No right ventricular strain. - Trace pleural effusion suggested with subjacent atelectasis. - Cardiomegaly and pulmonary venous hypertension. - Diffuse hepatic steatosis. EXAM: SINGLE VIEW CHEST XRAY. Date: January 13, 2025 Comparison: January 08, 2025 History: Shortness of breath Findings: No acute osseous abnormality. There is persistent left lower lobe atelectasis or consolidation, significantly changed. The right lung remains clear with calcified granulomas. The cardiac silhouette and pulmonary vasculature are within normal limits. IMPRESSION: No significant change from January 08, 2025. Persistent left lower lobe atelectasis or consolidation. EXAM: CTA CHEST FOR PE HISTORY: Shortness of breath COMPARISON: 01/10/2025 TECHNIQUE: CTA of the chest was performed from the lung apices to the upper abdomen after Omnipaque IV contrast was administered using PE protocol. 3-D imaging was also provided. FINDINGS: Respiratory motion artifact limits evaluation of the distal segmental pulmonary arteries. However, no central PE.. No CT findings of acute right ventricular strain or pulmonary infarct. Consolidation in the lower lobes appears similar to the previous CTA chest from 01/10/2025. No pleural effusion. The heart is enlarged. The pulmonary trunk is dilated which can be seen with pulmonary arterial hypertension. IMPRESSION: Limited as above. No central PE or findings of acute right ventricular strain. No large pleural effusion. Consolidation in the lower lobes similar to the previous CTA chest from 01/10/2025. Please see above description and additional findings. Date of Exam: 01/11/25Ordering Physician: ANTHONY COLLINS NP / DR. PASCALE GIBSON Room #: 120 Reason for Echo: SHORTNESS OF BREATH, HYPERTENSION, TYPE 2 DIABETES M-Mode Normal Adult Results LV Dimensions Normal Adult Results AoV Opening excursions >1.6 >1.6 LVEDD-base- 3.5-5.8 4.4 Ao root dimensions 2.0-3.7 3.6 LVESD-base- 3.1-4.6 L. Atrium dimensions 1.9-3.8 3.8 Post. Wall thickness 0.8-1.1 1.1 IV septum (thickness) 0.7-1.2 1.3 Post. Wall excursion 0.72-1.3 NORMAL Septal motion NORMAL Systolic motion R. Ventricular cavity 1.5-2.0 NORMAL LVEF 60% 70% Paradoxical septal wall motion NORMAL 2-D : 2-D M Mode Echocardiogram was performed using apical four chamber and left parasternal long and short axis views. Mitral, tricuspid and aortic valves appear to be normal. Contractility of the left ventricle seems to be normal, so is the cavity size. Left atrial cavity size and aortic root appear to be normal. There is no pericardial effusion. There is no thrombus noted in the left ventricle or left atrial cavity. COLOR FLOW: MITRAL INFLOW PATTERN A-WAVE > E-WAVE -- DIASTOLIC DYSFUNCTION OF LEFT VENTRICLE. M-MODE: MV: NORMAL AV: NORMAL TV: NORMAL PV: NORMAL CHAMBER SIZE: NORMAL WALL MOTION: NORMAL PERICARDIUM: NORMAL INTERPRETATION: 1. DIFFICULT STUDY -- TECHNICALLY DIFFICULT ECHOCARDIOGRAM 2. LEFT VENTRICULAR HYPERTROPHY 3. NORMAL VALVES 4. NORMAL LEFT VENTRICULAR CONTRACTILITY AND LEFT VENTRICLE SIZE. 5. EVIDENCE OF DIASTOLIC DYSFUNCTION OF LEFT VENTRICLE Lab Results Last 24 Hours: 01/14/25 01/13/25 01/08/25 05:39 05:23 21:29 WBC 14.14 H RBC 3.60 L Hgb 9.8 L Hct 29.6 L MCV 82.2 MCH 27.2 MCHC 33.1 RDW Coeff of Phillip 15.1 H Plt Count 236 Immature Gran % (Auto) 0.6 Neut % (Auto) 57.1 Lymph % (Auto) 38.2 Blair % (Auto) 3.8 Eos % (Auto) 0.1 Baso % (Auto) 0.2 Neut # (Auto) 8.1 H Lymph # (Auto) 5.4 H Blair # (Auto) 0.5 Eos # (Auto) 0.0 Baso # (Auto) 0.0 Immature Gran # (Auto) 0.1 Sodium 131.7 L Potassium 3.12 L Chloride 94.3 L Carbon Dioxide 23.9 Anion Gap 16.62 BUN 16.8 Creatinine 0.93 Estimated GFR (MDRD) 60.00 BUN/Creatinine Ratio 18.06 Glucose 146.5 H Calcium 8.33 L Total Bilirubin 0.89 AST 65.3 H ALT 38.3 H Alkaline Phosphatase 73.0 Total Protein 7.72 Albumin 3.43 L Globulin 4.29 Albumin/Globulin Ratio 0.79 Procalcitonin 0.48 H D-Dimer 4618.32 H CSF Strep pneumoniae Ag Not indicated. Staphs Organism ID Not indicated. S. pneumoniae Ag Source Urine S. pneumoniae Ag Intrp Negative Ref Test Please Note Comment Discharge Instructions Discharge Planning: Discharge Planning > [address] Sonia Ford. Discharge Medications: Medications at Discharge (Home Meds & RX) adalimumab 40 mg/0.4 mL subcutaneous pen kit (Humira(CF) Pen) 40 mg subcut WEEKLY 01/07/25 duloxetine 60 mg capsule,delayed release 60 mg PO DAILY 01/07/25 hydrochlorothiazide 25 mg tablet 25 mg PO DAILY 01/07/25 metformin 500 mg tablet,extended release 24 hr 500 mg PO DAILY 01/07/25 metoclopramide HCl 10 mg tablet (Reglan) 10 mg PO Q6H PRN nausea and vomiting #10 tabs 01/07/25 sulfasalazine 500 mg tablet 500 mg PO 2XD 01/07/25 amoxicillin 875 mg-potassium clavulanate 125 mg tablet 1 tab PO Q12HR #4 tabs 01/14/25 doxycycline hyclate 100 mg capsule 100 mg PO Q12HR #4 caps 01/14/25 metoprolol succinate 25 mg tablet,extended release 24 hr (Toprol XL) 50 mg (2 x 25 mg) PO DAILY #30 tabs 01/14/25 Discharge Plan Discharge Discharge Orders: Discharge Patient (ONCE); Ordered 01/14/25 Ordered By: MAYELIN FONTANA Activity Restrictions/Additional Instructions: DISCHARGE TO HOME DX: PNEUMONIA PHARMACY: [facility] METOPROLOL DOSE INCREASED FOLLOW UP WITH PCP SCHEDULED HOME O2 ORDERED WALKER ORDERED Patient Disposition: HOME SELF-CARE Prescriptions: New doxycycline hyclate 100 mg Capsule 100 mg PO Q12HR Qty: 4 0RF metoprolol succinate [Toprol XL] 25 mg Tablet Extended Release 24 Hr 50 mg PO DAILY Qty: 30 0RF amoxicillin-pot clavulanate 875-125 mg Tablet 1 tab PO Q12HR Qty: 4 0RF Continued Humira(CF) Pen 40 mg/0.4 mL pen injector kit 40 mg subcut WEEKLY hydrochlorothiazide 25 mg tablet 25 mg PO DAILY duloxetine 60 mg capsule,delayed release(DR/EC) 60 mg PO DAILY metformin 500 mg tablet extended release 24 hr 500 mg PO DAILY Patient Comments: on hold due to ct scan contrast may resume on 01/09/25 sulfasalazine 500 mg tablet 500 mg PO 2XD metoclopramide HCl [Reglan] 10 mg tablet 10 mg PO Q6H PRN (Reason: nausea and vomiting) Qty: 10 0RF Patient Comments: new medication filled but not taken Discontinued metoprolol succinate 25 mg tablet extended release 24 hr 25 mg PO DAILY Did you review [place] CHANGE MANAGEMENT DIRECTOR for ALL controlled substances?: Not Applicable Discussed opioids are addictive and Narcan is available by prescription or from pharmacy.: No Condition: Stable Referrals: PASCALE GIBSON [Primary Care Provider] - 01/16/25 10:15 am
[2025-01-14 14:58] VITALS: BP 123/73; PULSE 96; RESP 20; TEMP 96.5
== END 2025-01-14 16:55 | disposition home or self-care (01) | DRG 177 ==
LOC: ED 18:41 → MEDSURG B 20:56
PROVIDERS: ADMIT Hospitalist; ATTEND Nurse Practitioner Family